=== PATIENT | female | born 1945 ===

== ENCOUNTER 2017-04-03 11:41 | Inpatient (IN) | payer MEDICARE ==
[~2017-04-03] VITALS: Ht 152.4 cm; Wt 50.8 kg
--- NOTE | 2017-04-03 12:00 | NUR ---
PATIENT ADMITS TO [facility] FROM [facility], SHE LIVES AT HOME ALONE, SHE SAYS SHE IS SCARED AND SHE BELIEVES HER CATS CAN TALK AND THEY SPEAK MACEDONIAN AND GERMAN, SHE ALSO SAYS SHE HAS A DEVICE IMPLANTED IN HER ABDOMEN. SHE SAYS SHE IS SCARED TO BE AT HOME OVER AND OVER, BUT SHE IS WORRIED ABOUT HER CATS AND SHE IS WORRIED ABOUT HER HOME. PATIENT AMBULATES INDEPENDENTLY, SHE VOIDS URINE AND BOWEL WITHOUT INCONT.
[2017-04-03] MEDS ORDERED: BAYER CHEWABLE81 MG PO (12:19)
[2017-04-03 12:40] VITALS: BP 128/60; BMI 21.9
[2017-04-03 12:55] VITALS: BMI 21.9
[2017-04-03 13:12] LABS: BASOPHILS 0.2 % (0-2); EOSINOPHILS 0.9 % (0-7); HEMATOCRIT 43.2 % (36.0-48.0); HEMOGLOBIN 14.6 g/dL (12-16); IMMATURE GRANULOCYTES 0.2 % (0-5); LYMPHOCYTES 26.5 % (15-50); MCHC 33.8 g/dL (31.0-37.0); MCV 97.5 fL (80.0-100.0); MEAN PLATELET VOLUME 9.3 fL (7.4-10.4); MONOCYTES 11.7 % (2-11); NEUTROPHILS 60.5 % (40-80); PLATELET COUNT 244 10x3/uL (130-400); RBC 4.43 10x6/uL (4.00-5.40); RDW 13.7 % (11.5-14.5); WBC 4.5 10x3/uL (4.8-10.8)
[2017-04-03 13:22] LABS: HEMOGLOBIN A1C 5.1 % (4.8-6.0)
[2017-04-03 13:38] LABS: ALBUMIN 3.3 g/dL (3.4-5.0); ALKALINE PHOSPHATASE 106 U/L (46-116); ALT (SGPT) 26 U/L (10-68); CALC OSMOLALITY 277 mosm/kg (275-300); CALCIUM 8.8 mg/dL (8.5-10.1); CHLORIDE - SERUM 102 mmol/L (98-107); CHOL - HDL RATIO 2.5 ratio (2.3-4.1); CHOLESTEROL, TOTAL 211 mg/dL (0-200); CREATININE - SERUM 0.7 mg/dL (0.6-1.3); GLUCOSE 101 mg/dL (74-106); HDL CHOLESTEROL 84 mg/dL (32-96); LDL CHOLESTEROL 110 mg/dL (0-100); LDL-HDL RATIO 1.3 ratio (1.5-3.5); PROTEIN - SERUM 7.5 g/dL (6.4-8.2); SODIUM 140 mmol/L (136-145); TRIGLYCERIDE 89 mg/dL (30-200); UREA NITROGEN 9 mg/dL (7-18); eGFR NON AFRICAN AMERICAN 87 mL/min (90-120)
[2017-04-03 13:43] LABS: AMORPHOUS SEDIMENT <1+ /lpf (NONE SEEN); APPEARANCE CLEAR (CLEAR); BACTERIA FEW /hpf (NONE SEEN); BILIRUBIN NEGATIVE (NEGATIVE); COLOR YELLOW (YELLOW); EPITHELIAL CELLS OCC /hpf (0-5); GLUCOSE NEGATIVE (NEGATIVE); KETONE NEGATIVE (NEGATIVE); MUCUS <1+ /lpf (NONE SEEN); NITRITE NEGATIVE (NEGATIVE); PROTEIN NEGATIVE (NEGATIVE); UROBILINOGEN NORMAL (NORMAL); WHITE CELLS - URINE OCC /hpf (0-5)
[2017-04-03 22:51] VITALS: BP 140/71
--- NOTE | 2017-04-04 02:21 | NUR ---
B) patient is alert and oriented , calm and cooperative, pleasant and friendly, social and attentive to peers I) no scheduled medications this shift, Monitored for safety and comfort, R) Plesant and friendly to staff, P) Continue plan of care,
[2017-04-04 06:17] LABS: VITAMIN D 25 HYDROXY 10.2 ng/mL (30.0-100.0)
[2017-04-04 07:26] LABS: FOLATE (FOLIC ACID) - SERUM 2.2 ng/mL (>3.0); RAPID PLASMA REAGIN Non Reactive (Non Reactive)
--- NOTE | 2017-04-04 07:47 | NUR ---
B) PATIENT IS CALM AND PLEASANT, SHE IS SMILING AND SHE MAKES CONVERSATION WITH STAFF. SHE IS ORIENTED X4. I) ENCOURAGE GROUPS AND ACTIVITIES. R) PATIENT IS COMPLIANT WITH UNIT MILIEU. P) CONTINUE POC.
[2017-04-04 10:00] VITALS: BP 118/52
--- NOTE | 2017-04-04 10:00 | NUR ---
PATIENT HAS MADE MENTION THAT SHE WANTS THE MEDICAL DROrlando TO DO A CT SCAN ON HER ABDOMEN SHE IS STILL HEARING VOICES FROM THE DEVICE AND SHE SAYS "I NEED TO GO TO THE OFFICE THE LADY SAYS SHE NEEDS TO SEE ME. REDIRECTED PATIENT AND SHE VERBALIZED UNDERSTANDING. PATIENT IS PLEASANT.
--- NOTE | 2017-04-04 13:10 | NUR ---
TEXT DR. ANDERSON TO LET HER BE AWARE DR. JEFFREY HAS CONSULTED HER TO SEE THIS PATIENT.
[2017-04-04 19:30] VITALS: BP 140/75
--- NOTE | 2017-04-05 02:06 | NUR ---
B) Patient alert and oriented to self, confused and restless at times, helpful with other patients, I) Administered scheduled medications, PRN Ativan 0.5 mg PO and Haldol 2mg PO given for anxiety at 21:35 R) medication compliant, resting quietly now in bed, P) Continue plan of care.
[2017-04-05 08:00] VITALS: BP 118/70
--- NOTE | 2017-04-05 11:00 | PSY ---
PATIENT NAME:RUTHY WIN MEDICAL RECORD: [id number] : 43 LOCATION:[facility] ADMISSION DATE: 04/03/17 ACCOUNT: [id number] PSYCHIATRIC EVALUATION DATE OF EVALUATION: 04/04/17 IDENTIFYING DATA: The patient is 71 years old and she is admitted to the hospital on a voluntary basis. CHIEF COMPLAINT: Hallucinations. HISTORY OF PRESENT ILLNESS: The patient was brought to the Emergency Room at [facility] yesterday. At that time, she was having psychotic symptoms. They evaluated her medically and did not find any medical or neurologic conditions that needed to be addressed. The patient was subsequently referred here because of the psychotic symptoms. The patient voluntarily came. She has 2 sets of delusions. She apparently has a whole lot of cats in her house. She said she thinks about 20. She said that the cats are speaking to her. They are speaking Tunisian and Polish, some other cats speak both languages, some other cats only speak one. Most of what they say is not of very much concern to her, but some of them say very harmful things like telling her to hurt herself. She also says that there is a device implanted inside of her abdomen and that the device is used by someone, she cannot say who, to communicate with her and that she hears people talking to her through the device. She is upset about this and wants to have surgery to remove it. PAST MEDICAL HISTORY: Remarkably clean for this 71-year-old woman. She just takes a baby aspirin. PAST PSYCHIATRIC HISTORY: Denied by the patient. She is fluent in Tunisian, although she has a fairly thick accent. She initially was born and raised in [place]. She denies that she saw a psychiatrist in that country or this one ever. She says she has no depressive symptoms. She denies substance abuse. SOCIAL HISTORY: The patient lives alone. Her was an Citizen Of [place] who is . She has no children. She has some distant relatives in [place], but most of her close relatives have . She does have a sister who lives in [place], but the sister lives in a skilled nursing. She denies drug and alcohol abuse. She is very fond of her cats and as mentioned above, she estimates the number at about 20 with some of them being inside cats and some of them just being outside cats. Both sets of cats are able to speak to her. MENTAL STATUS EXAMINATION: The patient is alert, awake and oriented to person, place and somewhat to time and situation. Her mood is euthymic. Her affect is appropriate. Thought processes are circumstantial. Memory, concentration, and abstraction abilities are moderately impaired and she denies any active intent to harm herself or others as well as overt psychotic symptoms. ASSESSMENT: AXIS I: Vascular dementia. AXIS II: None. AXIS III: None. AXIS IV: Moderate stressors. AXIS V: Global assessment of functioning is 35. PLAN: At this time, the patient is admitted to the hospital secondary to psychotic symptoms and delusions. She will be comprehensively evaluated from both a medical, psychological, and social standpoint. At this point, I am going to treat her with a low dose of an antipsychotic medication and try to obtain whatever other information I can about her. TRANSINT:[id number] Voice Confirmation ID: [id number] DOCUMENT ID: [id number] PRUDENCIO JEFFREY MD at 1100 CC: [id number] DICTATION DATE: 04/04/17 1311 RN SUPPLEMENTAL: 04/04/17 1335 ADM IN [facility] [address] [place] [address]
--- NOTE | 2017-04-06 03:07 | NUR ---
RECEIVED IN GARCIA. STANDING AT NURSES STATION. SOCIALIZING WITH STAFF. CALM AND COOPERATIVE WITH CARE AND ASSESSMENT. PARANOID. BARRICADED HER DOOR. STATED PEOPLE ARE TRYING TO KILL HER. SUSPICIOUS. ASKED IF HER PM MEDICATIONS WAS POISON. ENCOURAGE TO EXPRESS NEEDS. ENCOURAGE MEDICATION COMPLIANCE. REDIRECT AND REORIENT NEEDED. RESTING IN BED WITH EYES CLOSED AT THIS TIME. CONTINUE PLAN OF CARE.
[2017-04-06 08:00] VITALS: BP 135/70
--- NOTE | 2017-04-06 09:02 | NUR ---
PATIENT SITTING UP IN CHAIR AND EATING BREAKFAST IN THE DINING ROOM. PATIENT IS AWAKE, ALERT, AND ORIENTED TO PERSON ONLY. PATIENT IS CALM AND COOPERATIVE AT PRESENT TIME. SCHEDULED MORNING MEDICATIONS GIVEN TO PATIENT. PATIENT SWALLOWED HER MEDICATIONS WITHOUT ANY DIFFICULTIES NOTED. WILL MONITOR PATIENT FOR SAFETY AND CONTINUE PLAN OF CARE.
[2017-04-06 19:30] VITALS: BP 128/86
--- NOTE | 2017-04-07 00:22 | NUR ---
RECEIVED IN GARCIA. WALKING AROUND. SOCIALIZES WITH PEERS AND STAFF. VERY CONFUSED. PARANOID. BARRICADING HER DOOR THINKING SOMEONE IS GOIGN TO COME IN AND KILL HER. DELUSIONAL. THINKING SHE IS IN HER HOUSE AND EVERYONE IS IN HER HOUSE. TOLD ANOTHER PATIENT ON UNIT THAT HE NEEDED TO GET OUT OF HER HOUSE. ENCOURAGE TO EXPRESS NEEDS. REDIRECT AND REORIENT NEEDED. RESTING IN BED WTIH EYES OPEN AT THIS TIME. CONTINUE PLAN OF CARE.
[2017-04-07 08:00] VITALS: BP 116/60
--- NOTE | 2017-04-07 13:37 | PN ---
PATIENT:RUTHY WIN MEDICAL RECORD: [id number] LOCATION:[facility] ADMISSION DATE: 04/03/17 PROGRESS NOTE DATE OF SERVICE: 04/05/2017 SUBJECTIVE: The patient's case was discussed with staff. She has no new complaint. OBJECTIVE: The patient denies intent to harm herself or others. She generally tolerates her medicines well. ASSESSMENT: No change in diagnoses. PLAN: Supportive and educational interventions were made. senior care prognosis is guarded. She has had no further psychotic symptoms today. Dr. Corinna Garsia is testing her today. TRANSINT:[id number] Voice Confirmation ID: [id number] DOCUMENT ID: [id number] PRUDENCIO JEFFREY MD at 1337 CC: [id number] DICTATION DATE: 04/05/17 1130 PLANT TECHNICIAN: 04/05/17 1158 ADM IN [facility] [address] [place] [address]
--- NOTE | 2017-04-07 14:09 | NUR ---
PT CONTINUES TO MAKE RANDOM DELUSIONAL STATEMENTS IN REGARDS TO HER HALLUCINATIONS. SHE IS VERY GUARDED ABOUT TALKING ABOUT THE HALLUCINATIONS BECAUSE "PEOPLE WILL THINK I AM CRAZY". ENCOURAGED PT TO EXPRESS FEELINGS AND TALK ABOUT THER HALLUCINATIONS SO WE COULD HELP HER. MEDICATIONS GIVEN ORDERED. FALL PRECAUTIONS MAINTAINED. WILL CONTINUE TO MONITOR AND CONTINUE WITH PLAN OF CARE.
[2017-04-07 21:18] VITALS: BP 132/62
--- NOTE | 2017-04-08 00:22 | NUR ---
RECEIVED IN PATIENT ROOM. WALKING AROUND IN ROOM. VERY CONFUSED. CALM AND COOPERATIVE [facility] CARE AND ASSESSMENT. NO SIGNS OF HALLUCINATIONS. VERY CARING AND VERY HELPFUL WITH PEERS. ENCOURAGE TO EXPRESS NEEDS. RESTING IN BED [facility] EYES OPEN AT THIS TIME. CONTINUE PLAN OF CARE.
--- NOTE | 2017-04-08 14:39 | PN ---
PATIENT:RUTHY WIN MEDICAL RECORD: [id number] LOCATION:[facility] ADMISSION DATE: 04/03/17 PROGRESS NOTE DATE OF SERVICE: 04/07/2017 SUBJECTIVE: The patient's case was discussed with staff. She has no new complaint. OBJECTIVE: The patient is in good behavioral control. She was tested by Dr. Corinna Dobbs and found to score in the severe cognitive range. I am a little surprised by the findings because she is oriented. ASSESSMENT: 1. 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 2. Major depression, moderate severity. PLAN: The patient will be treated with current medicines with the exception of Namenda. I am going to prescribe Namenda at a dose of 2.5 mg twice daily to treat her underlying cognitive impairment. It is clear from the testing and the several days of observation in this environment that she is not going to be able to go back to living independently, that is not a realistic option. I did not discuss that with her today. I did discuss the test findings, which she rejects. TRANSINT:[id number] Voice Confirmation ID: [id number] DOCUMENT ID: [id number] PRUDENCIO JEFFREY MD at 1439 CC: [id number] DICTATION DATE: 04/07/17 1405 OUTSIDE PLANT ENGINEER: 04/07/17 1423 [place] [address]
--- NOTE | 2017-04-08 15:45 | NUR ---
Received this am alert and oriented to name and place, states she is here because she "i'm having a hard time", Compliant with medications. No delusions noted at this time, has been very social and active with peers finding things to do. Distraction and interactions with others seems to minimize paranoia. Safety maintained, Continue plan of care.
[2017-04-08 20:39] VITALS: BP 144/71
--- NOTE | 2017-04-09 03:00 | NUR ---
RECEIVED IN HALLWAY. CONFUSED BUT IN GOOD SPIRITS. HELPFUL WITH PEERS. CALM AND COOPERATIVE WITH CARE AND ASSESSMENT. PARANOIA CONTINUES. BARRICADES HER BEDROOM DOOR. REDIRECT AND REOIENTED. REINFORCE HER SAFETY. ENCOURAGE TO EXPRESS NEEDS. RESTING EYES CLOSED AT THIS TIME. CONTINUE PLAN OF CARE
[2017-04-09 11:08] VITALS: BP 111/56
--- NOTE | 2017-04-09 12:09 | NUR ---
B) PATIENT IS AWAKE AND ALERT, SHE IS PLEASANT. SHE DENIES ANY HALLUCINATIONS, NOT HEARING MEN IN HER ABDOMEN TODAY OR LAST NIGHT. SHE SAYS "MY BIGGEST PROBLEM IS I'M LONELY." THE ACTIVITY THERAPIST HAS SPENT A LONG TIME DANCING WITH HER AND TALKING WITH HER AND HAVING GROUPS WHERE SHE INTERACTS WITH OTHERS AND SHE DID VERY WELL. I) PROVIDE PRESCRIBED MEDS. R) PATIENT IS COMPLIANT WITH MEDS AND UNIT MILIEU. P) CONTINUE POC.
--- NOTE | 2017-04-09 16:41 | PN ---
PATIENT:RUTHY WIN MEDICAL RECORD: [id number] LOCATION:[facility] ADMISSION DATE: 04/03/17 PROGRESS NOTE DATE OF SERVICE: 04/08/2017 SUBJECTIVE: The patient's case was discussed with staff. She has no new complaint. OBJECTIVE: The patient denies intent to harm herself or others. She generally tolerates her medicines well. ASSESSMENT: No change in diagnoses. PLAN: Current medicines have been reviewed and will be maintained. Her long-term prognosis is guarded. Brief supportive and educational interventions were made. TRANSINT:[id number] Voice Confirmation ID: [id number] DOCUMENT ID: [id number] PRUDENCIO JEFFREY MD at 1641 CC: [id number] DICTATION DATE: 04/08/17 1501 FACING BASTER: 04/08/17 1550 ADM IN [facility] [address] [place] [address]
--- NOTE | 2017-04-09 18:29 | NUR ---
Alert, walking about unit, denies pain/needs.
--- NOTE | 2017-04-10 01:44 | NUR ---
RECEIVED IN BEDROOM. PATIENT IS ORIENTED TO SELF ONLY. VERY HELPFUL AND CARING FOR HER PEERS. BUT HAS PARANOIA. BARRICADING HER DOOR AT NIGHT. CALM AND COOPERATIVE WITH CARE AND ASSESSMENT. NO DELUSIONAL STATEMENTS MADE THIS EVENING. REDIRECT AND REORIENT NEEDED. RESTING IN BED WITH EYES CLOSED AT THIS TIME. CONTINUE PLAN OF CARE.
[2017-04-10 08:30] VITALS: BP 131/56
--- NOTE | 2017-04-10 15:56 | NUR ---
B) PATIENT STILL THINKS SHE HAS A DEVICE IN HER STOMACH, SHE DENIES ANY VOICES, BUT SHE SAYS SHE IS STILL SCARED. SHE TRIES TO BE HELPFUL WITH OTHER PATIENTS AND SHE IS PLEASANT, SHE AMBULATES INDEPENDENTLY. I) PROVIDE PRESCRIBED MEDS. R) PATIENT IS COMPLIANT WITH MEDS AND UNIT MILIEU. P) CONTINUE POC.
[2017-04-10 19:30] VITALS: BP 110/64
--- NOTE | 2017-04-11 03:23 | NUR ---
B) patient is lert and oriented to self and being in a hospital, calm and healpful with other patients, I) Administered scheduled medications, monitored for safety, R) Medication compliant, no mention of devics or other behaviors, P) Continue plan of care.
[2017-04-11 08:30] VITALS: BP 119/56
--- NOTE | 2017-04-11 10:00 | NUR ---
B) PATIENT IS CALM AND COMPLIANT, VERY PLEASANT, LISTENS TO REDIRECTION. SHE SAYS SHE IS NOT HEARING ANY VOICES, SHE DOES SAY SHE IS STILL SCARED. PATIENT AMBULATES INDEPENDENTLY. I) PROVIDE PRESCRIBED MEDS. R) PATIENT IS COMPLIANT WITH MEDS AND UNIT MILIEU. P) CONTINUE POC.
[2017-04-11 19:30] VITALS: BP 133/88
--- NOTE | 2017-04-12 03:26 | NUR ---
B) Patient is alert and oriented X 3, wanders at times, calm and pleasant, I) Administered scheduled medications, monitored for safety R) Medication compliant, friendly and cooperative, P) Continue plan of care.
--- NOTE | 2017-04-12 05:45 | PN ---
PATIENT:RUTHY WIN MEDICAL RECORD: [id number] LOCATION:[facility] ADMISSION DATE: 04/03/17 PROGRESS NOTE DATE OF SERVICE: 04/11/2017 SUBJECTIVE: No new complaint. OBJECTIVE: Staff report the patient has been tolerating medications well. She is cooperative. She remains very confused. On exam, mood is euthymic. Affect is very reserved. Speech is quite terse. Content of thought positive for paranoid ideation and somewhat auditory hallucinations. Sensorium is unchanged. ASSESSMENT: No change in diagnosis. PLAN: 1. We will maintain all current medications. 2. Continue supportive therapy. TRANSINT:[id number] Voice Confirmation ID: [id number] DOCUMENT ID: [id number] ARCELIA REYNOSO III, MD at 0545 CC: [id number] DICTATION DATE: 04/11/17 1155 CASTING MACHINE SERVICE OPERATOR: 04/11/17 1204 ADM IN [facility] [address] [place] [address]
[2017-04-12 08:00] VITALS: BP 134/63
--- NOTE | 2017-04-12 10:00 | NUR ---
B) PATIENT'S SISTER LOUISE THAT LIVES IN [place] CALLED THE POLICE TO DO A WELLNESS CHECK UP. CAROLINE DID WANT HER TO KNOW WHERE SHE IS, DID GIVE THEM PERMISSION TO TALK AT THIS TIME THEY ARE BOTH CONCERNED ABOUT ONE ANOTHER, THE SISTER IS IN POOR HEALTH AND NOT ABLE TO TRAVEL HERE. I) PROVIDED DIRECT PHONE NUMBER AND PHONE CALL TIMES AND CODE WORD. PROVIDE PRESCRIBED MEDS TO PATIENT. R) PATIENT IS COMPLIANT WITH MEDS AND UNIT MILIEU. SHE TRIES TO BE HELPFUL AND SHE IS KIND, BUT SHE NEEDS SOME REDIRECTION NOT TO HELP WITH ACTUAL PATIENT CARE. PATIENT DENIES VOICES, SAYS SHE IS SCARED, SHE WILL NOT EAT VERY MUCH BECAUSE SHE SAYS THE DEVICE IS TAKING UP TOO MUCH ROOM IN HER STOMACH. P) CONTINUE POC.
[2017-04-12 19:30] VITALS: BP 136/82
--- NOTE | 2017-04-13 04:31 | NUR ---
B) patient is alert and oriented, calm and social with peers, friendly and helpful I) Administered scheduled medications, MOnitored for safety R) Medication compliant, pleasant and no behaviors or delusions noted P) Continue plan of care.
[2017-04-13 08:00] VITALS: BP 107/52
--- NOTE | 2017-04-13 08:45 | NUR ---
B) ALERT AND ORIENTED TO NAME AND PLACE. CALM AND COOPERATIVE WITH ASSESSMENT. I) ADMINISTERED PRESCRIBED MEDICATIONS AND MONITOR FOR SAFETY. R) COMPLIANT WITH TAKING MEDICATIONS. P) CONTINUE PLAN OF CARE.
[2017-04-13 19:30] VITALS: BP 126/76
--- NOTE | 2017-04-13 21:37 | NUR ---
RECEIVED IN DINING AREA. WALKING ABOUT SOCIALIZING WITH HER PEERS. IN GOOD SPIRITS. CALM AND COOPERATIVE WITH CARE AND ASSESSMENTS. NO SIGNS OF PARANOIA AT THIS TIME. NO DELUSIONAL STATEMENTS. REDIRECT AND REORIENT NEEDED. CONTINUES TO SOCIALIZE WITH HER PEERS. CONTINUE PLAN OF CARE
[2017-04-14 09:41] VITALS: BP 126/80
--- NOTE | 2017-04-14 10:12 | PN ---
PATIENT:RUTHY WIN MEDICAL RECORD: [id number] LOCATION:[facility] ADMISSION DATE: 04/03/17 PROGRESS NOTE DATE OF SERVICE: 04/13/2017 SUBJECTIVE: No new complaint. OBJECTIVE: The patient continues to be cooperative with staff. She is tolerating medications well. On exam, mood is for the most part euthymic. Affect is overall constricted. Speech tends to be fairly terse. Content of thought is negative for overt psychosis. Sensorium shows no change. ASSESSMENT: No change in diagnosis. PLAN: 1. Continue present medications. 2. Continue supportive therapy. TRANSINT:[id number] Voice Confirmation ID: [id number] DOCUMENT ID: [id number] ARCELIA REYNOSO III, MD at 1012 CC: [id number] DICTATION DATE: 04/13/17 1638 ORDER DEPARTMENT SUPERVISOR: 04/13/17 2214 ADM IN [place] [id number] [place] [address]
--- NOTE | 2017-04-14 14:04 | PN ---
PATIENT:RUTHY WIN MEDICAL RECORD: [id number] LOCATION:[facility] ADMISSION DATE: 04/03/17 PROGRESS NOTE DATE OF SERVICE: 04/10/2017 SUBJECTIVE: The patient's case was discussed with staff. She has no new complaint. OBJECTIVE: The patient denies intent to harm herself or others. She generally tolerates her medicines well. ASSESSMENT: No change in diagnoses. PLAN: Current medicines have been reviewed and will be maintained. Her long-term prognosis is guarded. I am going to increase her dose of Zoloft to 100 mg daily. TRANSINT:[id number] Voice Confirmation ID: [id number] DOCUMENT ID: [id number] PRUDENCIO JEFFREY MD at 1404 CC: [id number] DICTATION DATE: 04/10/17 1508 RATE QUOTING OPERATOR: 04/10/17 1756 ADM IN [place] [id number] [place] [id number]
--- NOTE | 2017-04-14 14:04 | PN ---
PATIENT:RUTHY WIN MEDICAL RECORD: [id number] LOCATION:[facility] ADMISSION DATE: 04/03/17 PROGRESS NOTE DATE OF SERVICE: 04/09/2017 SUBJECTIVE: The patient's case was discussed with staff. She has no new complaint. OBJECTIVE: The patient continues to be delusional about the cats talking to her and the cats are not here today, so the device in her abdomen is talking to her. Quick exam reveals normal bowel sounds and her stomach is supple and not tender. She is having normal bowel movements. At least that is what she reports and there is no reason to think that is mistaken. She is very much convinced that this device in her is talking to her and that the things that it is saying is that she is being accused of murder. She is upset by this. ASSESSMENT: No change in diagnoses. PLAN: I have reviewed the patient's medications which have not had an opportunity to become effective. I am going to maintain her on current medicines. I have done some supportive and educational interventions. It is clear she is not going to be able to live independently. It also appears to be clear that there are no close friends or family members who can care for her. She is a [place] immigrant and her closest relative is a sister who lives in [place] in a care home. TRANSINT:[id number] Voice Confirmation ID: [id number] DOCUMENT ID: [id number] PRUDENCIO JEFFREY MD at 1404 CC: [id number] DICTATION DATE: 04/09/17 171 SENIOR FORMULATION SCIENTIST: 04/09/17 1841 ADM IN [place] [id number] [place] [address]
--- NOTE | 2017-04-14 22:19 | NUR ---
RECEIVED IN BEDROOM. RESTING IN BED WITH EYES OPEN. CALM AND COOPERATIVE WITH CARE AND ASSESSMENTS. NO SIGNS OF PARANOIA. ENCOURAGE TO EXPRESS NEEDS. RESTING IN BED WITH EYES CLOSED AT THIS TIME. CONTINUE PLAN OF CARE
[2017-04-15 06:57] VITALS: BP 119/56
[2017-04-15 08:30] VITALS: BP 119/56
--- NOTE | 2017-04-15 11:00 | NUR ---
AWAKE AND ALERT. CALM AND COOPERATIVE WITH CARE ASSESSMENT, PARTICIPATING WITH GROUPS, STILL SOME CONFUSION. WILL CONT. POC.
[2017-04-15 12:26] VITALS: Ht 152.4 cm; Wt 50.8 kg
--- NOTE | 2017-04-15 14:20 | PN ---
PATIENT:RUTHY WIN MEDICAL RECORD: [id number] LOCATION:[facility] ADMISSION DATE: 04/03/17 PROGRESS NOTE DATE OF SERVICE: 04/14/2017 SUBJECTIVE: The patient's case was discussed with staff. She has no new complaint. OBJECTIVE: The patient is only partially oriented. She says the hallucinations are gone and as is that device in her abdomen that was talking to her. ASSESSMENT: No change in diagnoses. PLAN: Current medicines have been reviewed and will be maintained. Long-term prognosis is guarded. TRANSINT:[id number] Voice Confirmation ID: [id number] DOCUMENT ID: [id number] PRUDENCIO JEFFREY MD at 1420 CC: [id number] DICTATION DATE: 04/14/17 1450 MEDICAL VAN DRIVER: 04/14/17 1555 ADM IN [facility] [address] [place] [address]
[2017-04-15 20:25] VITALS: BP 136/72
--- NOTE | 2017-04-15 22:47 | NUR ---
RECEIVED IN BEDROOM. RESTING IN BED WITH EYES OPEN. CALM AND COOPERATIVE WITH CARE AND ASSESSMENTS. NO SIGNS OF PARANOIA. SOCIAL WITH STAFF AND PEERS. ENCOURAGE TO EXPRESS NEEDS. RESTING IN BED EYES CLOSED AT THIS TIME. CONTINUE PLAN OF CARE
[2017-04-16 10:36] VITALS: BP 119/54
--- NOTE | 2017-04-16 13:25 | NUR ---
B) PATIENT IS CALM AND PLEASANT, SHE DOES HAVE SOME CONFUSION SHE DOESN'T KNOW THE DATE OR TIME, BUT SHE KNOWS WHERE TO LOOK ON THE BOARD AND TO LOOK AT THE CLOCK. SHE DENIES HEARING ANY VOICES, SHE SAYS AT TIMES SHE GETS SCARED AT NIGHT, BUT BELIEVES THE MEDICINE IS HELPING HER DEVICE DISOLVE FROM HER ABDOMEN. I) PROVIDE PRESCRIBED MEDS. R) PATIENT IS COMPLIANT WITH MEDS. PABLITO Willis HERE TO ASSESS. P) CONTINUE POC.
--- NOTE | 2017-04-16 15:06 | PN ---
PATIENT:RUTHY WIN MEDICAL RECORD: [id number] LOCATION:[facility] ADMISSION DATE: 04/03/17 PROGRESS NOTE DATE OF SERVICE: 04/15/2017 SUBJECTIVE: The patient's case was discussed with staff. She has no new complaint. OBJECTIVE: The patient denies intent to harm herself or others. She generally tolerates her medicines well. She denies paranoid or psychotic symptoms. ASSESSMENT: No change in diagnoses. PLAN: The patient simply cannot live independently and there are no options regarding family, friends, or relatives. Furthermore, she cannot afford kind of caregivers that would require to care for her in her home, so it appears the [facility] at the least restrictive environment. Adult protective services are involved with the case because the patient insists she can live independently, which she cannot. TRANSINT:[id number] Voice Confirmation ID: [id number] DOCUMENT ID: [id number] PRUDENCIO JEFFREY MD at 1506 CC: [id number] DICTATION DATE: 04/15/17 1449 SOCIAL MEDIA CAMPAIGN MANAGER: 04/15/17 1508 ADM IN [facility] [address] [place] [address]
[2017-04-16 19:52] VITALS: BP 134/58
--- NOTE | 2017-04-17 00:23 | NUR ---
B) Patient is alert and oriented, calm and friendly, cooperative with staff, social with peers, I) Administered scheduled medications, monitored for safety R) medication compliant, no behaviors noted, P) Continue plan of care.
[2017-04-17 07:30] VITALS: BP 93/63
--- NOTE | 2017-04-17 13:50 | PN ---
PATIENT:RUTHY WIN MEDICAL RECORD: [id number] LOCATION:[facility] ADMISSION DATE: 04/03/17 PROGRESS NOTE DATE OF SERVICE: 04/16/2017 SUBJECTIVE: The patient's case was discussed with staff. She has no new complaint. OBJECTIVE: The patient is in good behavioral control. She no longer has the psychotic symptoms. She is severely impaired cognitively and cannot live alone. ASSESSMENT: No change in diagnoses. PLAN: The patient will be transitioned to the least restrictive environment that can meet her needs as soon as placement is arranged. This is complicated by the fact that she has no family or close friends who can assist us and she does not want to go to the care home, but wants to go home and live independently with her cats. TRANSINT:[id number] Voice Confirmation ID: [id number] DOCUMENT ID: [id number] PRUDENCIO JEFFREY MD at 1350 CC: [id number] DICTATION DATE: 04/16/17 1622 MANAGER OF PLANNING: 04/16/17 1653 ADM IN [facility] [address] [place] [address]
--- NOTE | 2017-04-17 14:18 | NUR ---
Nutrition Follow Up: Pt is eating 69% meal avg on a regular diet. +BM 04/16/17. Meds and labs noted. Rec continue current diet. RD following.
--- NOTE | 2017-04-17 15:26 | NUR ---
B) PATIENT IS AWAKE AND ALERT AND SHE IS ORIENTED TO PERSON AND PLACE, SHE IS FORGETFUL AT TIMES. SHE IS INTERACTING WELL WITH STAFF AND PEERS. SHE IS AMBULATORY. I) PROVIDE PRESCRIBED MEDS. R) PATIENT IS COMPLIANT WITH MEDS AND UNIT MILIEU. P) CONTINUE POC.
[2017-04-17 20:31] VITALS: BP 114/46
--- NOTE | 2017-04-18 01:36 | NUR ---
B) Patient is alert and oriented, calm and cooperative with care and assessment, social with peers, helpful to others, I) Administered scheduled medications, monitored for safety, R) Medication compliant, pleasant and friendly P) Continue plan of care.
[2017-04-18 08:00] VITALS: BP 94/57
--- NOTE | 2017-04-18 13:13 | NUR ---
CHRISTIANNE SPOKE WITH ILENE FROM APS. HE STATED PT CAN GO HOME WITH SERVICES AND THEY WILL DO A FOLLOW UP CHECK ON HER. SHE NEEDS TO BE IN THE LEAST RESTRICTIVE ENVIRONMENT AND IF THAT DOES NOT WORK THEY WILL GET HER TO SIGN HERSELF INTO PLACEMENT. CHRISTIANNE STATED SHE WILL SET UP PT WITH MEALS ON WHEELS.
--- NOTE | 2017-04-18 14:59 | NUR ---
B) PATIENT IS AWAKE AND ALERT, SHE DID HAVE AN ASSESSMENT WITH APS TODAY. PATIENT AMBULATES AND SHE DENIES ANY HALLUCINATIONS TODAY, HAS NOT MADE ANY STATEMENTS ABOUT BEING FEARFUL TODAY. I) PROVIDE PRESCRIBED MEDS. R) PATIENTI S COMPLIANT WITH MEDS. P) CONTINUE POC.
[2017-04-18 19:30] VITALS: BP 93/55
--- NOTE | 2017-04-18 21:52 | PN ---
PATIENT:RUTHY WIN MEDICAL RECORD: [id number] LOCATION:[facility] ADMISSION DATE: 04/03/17 PROGRESS NOTE DATE OF SERVICE: 04/18/2017 SUBJECTIVE: No new complaint. OBJECTIVE: The patient is tolerating medications well. She has been cooperative with staff. Staff is working on placement options. On exam, mood is euthymic. Affect is somewhat constricted. Speech is rather terse. Content of thought and sensorium are both unchanged. ASSESSMENT: No change in diagnosis. PLAN: 1. Continue current medications. 2. Continue supportive therapy. TRANSINT:[id number] Voice Confirmation ID: [id number] DOCUMENT ID: [id number] ARCELIA REYNOSO III, MD at 2152 CC: [id number] DICTATION DATE: 04/18/17 1307 DENTAL SURGEON: 04/18/17 1322 ADM IN [facility] [address] [id number]
--- NOTE | 2017-04-19 00:48 | NUR ---
RECEIVED IN BEDROOM. WALKING ABOUT HER ROOM. IN GOOD SPIRITS. SOCIAL WITH STAFF AND PEERS. CALM AND COOPERATIVE WITH CARE AND ASSESSMENTS. NO SIGNS OF PARANOIA. REDIRECT AND REORIENT NEEDED. ENCOURAGE TO EXPRESS NEEDS. RESTING IN BED WITH EYES CLOSED AT THIS TIME. CONTINUE PLAN OF CARE
--- NOTE | 2017-04-19 13:25 | NUR ---
ORIENTED TO SELF AND HOSPITAL.WALKS FREQUENTLY WITH FAIRLY STEADY GAIT.COMPLIANT WITH STAFF AND MEDS.OFTEN OBSERVED HELPING OTHERS.WILL CONTINUE WITH PLAN OF CARE.MONITOR FOR CHANGES AND SAFETY.
[2017-04-19 16:04] VITALS: BP 101/53
[2017-04-19 19:30] VITALS: BP 105/64
--- NOTE | 2017-04-19 22:44 | NUR ---
RECEIVED IN HALLWAY. PLEASANTLY CONFUSED. CALM AND COOPERATIVE WITH CARE AND ASSESSMENTS. NO SIGNS OF PARANOIA THIS EVENING. REDIRECT AND REORIENT NEEDED. RESTING IN BED WITH EYES OPEN. CONTINUE PLAN OF CARE
--- NOTE | 2017-04-20 05:02 | PN ---
PATIENT:RUTHY WIN MEDICAL RECORD: [id number] LOCATION:[facility] ADMISSION DATE: 04/03/17 PROGRESS NOTE DATE OF SERVICE: 04/19/2017 SUBJECTIVE: No new complaint. OBJECTIVE: The patient continues to be cooperative. She interacts well with other female patients. She is tolerating medications without difficulty. On exam, mood is for the most part euthymic. Affect remains somewhat constricted. Speech is somewhat terse. Content of thought shows nonspecific paranoid ideation. Sensorium shows no change. ASSESSMENT: No change in diagnosis. PLAN: 1. Continue all current medications. 2. Continue supportive therapy. TRANSINT:[id number] Voice Confirmation ID: [id number] DOCUMENT ID: [id number] ARCELIA REYNOSO III, MD at 0502 CC: [id number] DICTATION DATE: 04/19/17 0955 FLIGHT SURVEYOR: 04/19/17 1155 ADM IN [address] [place] [address]
--- NOTE | 2017-04-20 10:44 | NUR ---
ORIENTED X 3 BUT CONTINUES TO BELIEVE SHE HAD IMPLANTED DEVICE IN HER ABD THAT ENABLED HER TO TALK WITH THE 22 CATS SHE HAD AT HER HOME.SHE NOW BELIEVES DEVICE HAS DISSOLVED.IS AMBULATORY.COMPLANT WITH STAFF AND MEDS.WILL CONTINUE WITH PLAN OF CARE,MONITOR FOR CHANGES AND SAFETY.
[2017-04-20 19:09] VITALS: BP 105/57
[2017-04-20 20:30] VITALS: BP 118/52
--- NOTE | 2017-04-20 22:00 | NUR ---
RECEIVED IN HALLWAY. WALKING ABOUT. SOCIALIZING WITH PEERS AT TIMES. IN GOOD SPIRITS. CALM AND COOPERATIVE WITH CARE AND ASSESSMENTS. NO SIGNS OF PARANOIA THIS EVENING. ENCOURAGE TO EXPRESS NEEDS. RESTING IN BED WITH EYES CLOSED AT THIS TIME. CONTINUE PLAN OF CARE
[2017-04-21 12:18] VITALS: BP 102/58
--- NOTE | 2017-04-21 14:00 | NUR ---
ORIENTED TO SELF AND HOSPITAL. CALM AND COOPERATIVE WITH PEERS AND STAFF. AMBULATES INDEPENDENTLY AND IS HELPFUL TO OTHERS. CONTINU POC AND MONITOR FOR SAFETY AND CHANGES.
[2017-04-21 20:35] VITALS: BP 117/54
--- NOTE | 2017-04-21 21:02 | NUR ---
RECEIVED IN BEDROOM. WALKING ABOUT HER ROOM. CALM AND COOPERATIVE WITH CARE AND ASSESSMENTS. NO SIGNS OF PARANOIA. ENCOURAGE TO EXPRESS NEEDS. RESTING IN BED WITH EYES OPEN AT THIS TIME. CONITNUE PLAN OF CARE
--- NOTE | 2017-04-22 10:17 | PN ---
PATIENT:RUTHY WIN MEDICAL RECORD: [id number] LOCATION:[facility] ADMISSION DATE: 04/03/17 PROGRESS NOTE DATE OF SERVICE: 04/21/2017 SUBJECTIVE: No new complaint. OBJECTIVE: The patient continues to tolerate medications well, but remains confused. She does require redirection from time to time. On exam, mood is euthymic. Affect is bland. Speech is rather terse. Content of thought is unchanged. Sensorium unchanged. ASSESSMENT: No change in diagnosis. PLAN: 1. Maintain current medication. 2. Continue supportive therapy. TRANSINT:[id number] Voice Confirmation ID: [id number] DOCUMENT ID: [id number] ARCELIA REYNOSO III, MD at 1017 CC: [id number] DICTATION DATE: 04/21/17 1353 SOLE FILLER: 04/21/17 1450 ADM IN [address] [place] [address]
[2017-04-22 10:32] VITALS: BP 83/53
[2017-04-22 20:22] VITALS: BP 113/50
--- NOTE | 2017-04-22 21:22 | NUR ---
RECEIVED IN BEDROOM. WALKING ABOUT HER ROOM GETTING READY FOR BED. CALM AND COOPERATIVE WITH CARE AND ASSESSMENTS. NO SIGNS OF PARANOIA. ENCOURAGE TO EXPRESS NEEDS. REMAIN IN BEDROOM RESTING QUIETLY. CONTINUE PLAN OF CARE
[2017-04-23 08:00] VITALS: BP 108/70
--- NOTE | 2017-04-23 09:00 | NUR ---
ALERT, AMBULATORY, CONFUSED, TALKATIVE, PLEASANT, DENIES PAIN, HELPFUL WITH OTHER PATIENTS, MED COMPLIANT, EDWIN MEDS WELL. CONTINUE PLAN OF CARE INCLUDING MEDICATIONS AND GROUP THERAPY.
--- NOTE | 2017-04-23 09:31 | PN ---
PATIENT:RUTHY WIN MEDICAL RECORD: [id number] LOCATION:[facility] ADMISSION DATE: 04/03/17 PROGRESS NOTE DATE OF SERVICE: 04/22/2017 SUBJECTIVE: No new complaint. OBJECTIVE: The patient has continued to be compliant with staff. No new problems noted. On exam, mood is for the most part euthymic. Affect is rather constricted. Speech is terse. Content of thought is negative for suicidality. Sensorium is unchanged. ASSESSMENT: No change in diagnosis. PLAN: 1. Awaiting communication from adult protective services regarding discharge plans. 2. Continue all current medications. 3. Continue supportive therapy. TRANSINT:[id number] Voice Confirmation ID: [id number] DOCUMENT ID: [id number] ARCELIA REYNOSO III, MD at 0931 CC: [id number] DICTATION DATE: 04/22/17 1208 SUPPLY CHAIN CONSULTANT: 04/22/17 1229 ADM IN [id number] [place] [address]
[2017-04-23 20:05] VITALS: BP 116/73
--- NOTE | 2017-04-23 21:35 | NUR ---
LAYING BED WITH EYES CLOSED. RESPONDS TO VOICE. CALM AND COOPERATIVE WITH CARE AND ASSESSMENTS. NO SIGNS OF PARANOIA. NO DELUSIONAL STATEMENTS MADE. ENCOURAGE TO EXPRESS NEEDS. RESTING IN BED WITH EYES CLOSED AT THIS TIME. CONTINUE PLAN OF CARE
--- NOTE | 2017-04-24 08:07 | PN ---
PATIENT:RUTHY WIN MEDICAL RECORD: [id number] LOCATION:[facility] ADMISSION DATE: 04/03/17 PROGRESS NOTE DATE OF SERVICE: 04/23/2017 SUBJECTIVE: No new complaint. OBJECTIVE: We are awaiting communication from adult protective services regarding discharge plans. On exam, mood is euthymic. Affect is bland. Speech is terse. Content of thought is unchanged. Sensorium unchanged. ASSESSMENT: No change in diagnosis. PLAN: 1. Maintain current medications. 2. Continue supportive therapy. TRANSINT:[id number] Voice Confirmation ID: [id number] DOCUMENT ID: [id number] ARCELIA REYNOSO III, MD at 0807 CC: [id number] DICTATION DATE: 04/23/17 1154 HEALTH PROGRAM DIRECTOR: 04/23/17 1223 ADM IN [facility] [address] [place] [address]
--- NOTE | 2017-04-24 09:52 | NUR ---
B) PATIENT IS AWAKE AND ALERT, SHE IS POSITIVE AND POLITE, SHE HAS NOT MADE ANY STATEMENTS ABOUT HEARING VOICES AND NO REFERENCE TO THE DEVICE IN HER ABDOMEN, DENIES BEING FEARFUL. I) PROVIDE PRESCRIBED MEDS. R) PATIENT IS COMPLIANT WITH MEDS. P) CONTINUE POC.
[2017-04-24 11:59] VITALS: BP 110/50
--- NOTE | 2017-04-24 12:18 | NUR ---
NUTRITION F/U CHART REVIEWED. PT TOLERATING REG DIET WITH 75 TO 100% INTAKE RECENT MEALS. NO RECENT BM RECORDED. WILL CONTINUE TO PROVIDE DIET, MONITOR PO INTAKE. RD FOLLOWING
--- NOTE | 2017-04-24 19:58 | NUR ---
RECEIVED IN DAYROOM. SITTING IN CHAIR. SOCIALIZING WITH PEERS AND STAFF. CALM AND COOPERATIVE WITH CARE AND ASSESSMENT. NO DELUSIONAL STATEMENTS MADE. ENCOURAGE TO EXPESS NEEDS. PATIENT SITTING WITH PEERS SOCIALIZING AT THIS TIME. CONTINUE PLAN OF CARE.
[2017-04-24 22:00] VITALS: BP 124/59
--- NOTE | 2017-04-25 07:59 | NUR ---
RECEIVED IN BEDROOM. WALKING ABOUT HER ROOM. GETTING READY FOR THE DAY. IN GOOD SPIRITS. CALM AND COOPERATIVE WITH CARE AND ASSESSMENTS. NO SIGNS OF PARANOIA. SOCIALIZING WITH PEERS AT THIS TIME. CONTINUE PLAN OF CARE
--- NOTE | 2017-04-25 10:07 | PN ---
PATIENT:RUTHY WIN MEDICAL RECORD: [id number] LOCATION:[facility] ADMISSION DATE: 04/03/17 PROGRESS NOTE DATE OF SERVICE: 04/24/2017 SUBJECTIVE: No new complaint. OBJECTIVE: Discharge remains held up due to this unit not receiving communication from adult protective services. It has now been over 3 days and despite repeated phone calls no communication has been received. The patient herself is stable at the moment. PHYSICAL EXAMINATION: On exam, mood is euthymic. Affect is rather constricted. Speech is somewhat terse. Content of thought is unchanged. Sensorium is unchanged. ASSESSMENT: No change in diagnosis. PLAN: 1. Continue current medications. 2. Continue supportive therapy. TRANSINT:[id number] Voice Confirmation ID: [id number] DOCUMENT ID: [id number] ARCELIA REYNOSO III, MD at 1007 CC: [id number] DICTATION DATE: 04/24/17 1150 INTERIOR DESIGN PROGRAM CHAIR: 04/24/17 1217 ADM IN [id number] [place] [address]
[2017-04-25 10:47] VITALS: BP 104/53
[2017-04-25 19:30] VITALS: BP 125/61
--- NOTE | 2017-04-26 05:20 | NUR ---
B) Patient is alert and oriented to self, calm and helpful with peers, cooperative with staff, I) Administered scheduled medications, monitored for behaviors, R) Meedication compliant, pleasant and friedly P) Continue plan of care.
--- NOTE | 2017-04-26 07:45 | NUR ---
B) PATIENT IS AWAKE AND ALERT AND ORIENTED X3, BUT SHE DID SAYS SHE IS BEGINNING TO HEAR MUSIC ALL THE TIME, SHE SAYS "I AM TRYING TO FIGURE OUT WHERE IT IS COMING FROM, GOD ONLY KNOWS." PATIENT AMBULATES INDEPENDENTLY, SHE IS HELPFUL AND CURTEOUS TO STAFF AND PEERS. I) PROVIDE PRESCRIBED MEDS. R) PATIENT IS COMPLIANT WITH MEDS. P) CONTINUE POC.
[2017-04-26 08:00] VITALS: BP 96/52
[2017-04-26 19:28] VITALS: BP 112/70
--- NOTE | 2017-04-27 03:36 | NUR ---
B) Patient is alert and oriented, calm and friendly to staff and peers, helpful to other patients, I) Administered scheduled medications, monitored for safety R) Medication compliant, pleasant and cooperative P) Continue plan of care.
[2017-04-27 07:00] VITALS: BP 106/46
--- NOTE | 2017-04-27 16:32 | NUR ---
IS ORIENTED X3 BUT STILL BELIEVES HER CATS TALKED TO HER AND THAT SHE HAD A DEVICE IMPLANTED IN HER BELLY THAT ALLOWED CATS TO TALK TO HER.SHE BELIEVES THE DEVICE WAS DISSOLVED BY MEDICINE GIVEN TO HER.IS AMBULATORY PER SELF.COMPLIANT WITH MEDS.WILL CONTINUE WITH PLAN OF CARE,MONITOR FOR CHANGES AND SAFETY.
[2017-04-27 19:30] VITALS: BP 122/62
--- NOTE | 2017-04-27 20:58 | NUR ---
RECEIVED IN BEDROOM. STANDING AT SINK PUTTING BUTTER ON HER FACE. STATES " IM PUTTING THIS BUTTER ON MY FACE BECAUSE IT MAKES IT REALLY SOFT AND MAKES IT SO I DONT GET UGLY". CALM AND COOPERATIVE WITH CARE AND ASSESSMENTS. NO SIGNS OF PARANOIA. ENCOURAGE TO EXPRESS NEEDS. CONTINUES TO GET READY FOR BED AT THIS TIME. CONTINUE PLAN OF CARE
[2017-04-28 08:17] VITALS: BP 105/59
--- NOTE | 2017-04-28 09:03 | NUR ---
CHRISTIANNE SPOKE WITH CHIP FROM APS REGARDING PT'S CASE. IT IS AN OPEN CASE AND THEY WILL FOLLOW PT IN THE HOME ENVIRONMENT. HOWEVER, PT IS NOT IN THEIR CUSTODY SO THEY WILL NOT WRITE A LETTER STATING THEIR DECISION WAS TO PUT HER BACK IN THE HOME ENVIRONMENT. CHIP STATED THEY WILL FOLLOW HER IN THE HOME AND IF SHE FAILS AT THE MOST LEAST RESTRICTIVE ENVIRONMENT THEN SHE WILL BE PLACED AT THE NEXT LEVEL OF CARE.
--- NOTE | 2017-04-28 09:39 | PN ---
PATIENT:RUTHY WIN MEDICAL RECORD: [id number] LOCATION:[facility] ADMISSION DATE: 04/03/17 PROGRESS NOTE DATE OF SERVICE: 04/25/2017 SUBJECTIVE: No new complaint. OBJECTIVE: This is now the fifth day that we have not received any communication whatsoever from adult protective services regarding discharge plans. Again, the only requirement that we have is simply receiving a letter confirming their determination, but repeated phone calls by case management have gone either unanswered or there is a delay in response. Aside from this, the patient remains stable, she is tolerating medications well, participating in group activities. Mood is for the most part euthymic. Affect is somewhat constricted. Speech is rather terse. Content of thought focuses on somatic concerns. Sensorium shows no change. ASSESSMENT: No change in diagnosis. PLAN: 1. Continue current medications. 2. Continue supportive therapy. TRANSINT:[id number] Voice Confirmation ID: [id number] DOCUMENT ID: [id number] ARCELIA REYNOSO III, MD at 0939 CC: [id number] DICTATION DATE: 04/25/17 111 STEAM CLEANER: 04/25/[address] [facility] [address] [place] [address]
--- NOTE | 2017-04-28 09:54 | NUR ---
SW PROVIDE PT WITH CARING PLACE, SCAT VAN, AND ANIMAL CONTROL NUMBERS/BROCHURES. SW ALSO PRINTED OFF DIRECTIONS TO NEAREST PHARMACY AND WALK IN CLINIC TO PT'S HOUSE SINCE SHE DOES NOT HAVE PCP OR PHARMACY. CHRISTIANNE DISCUSSED RESOURCES WITH PT AND SET HER UP WITH MEALS ON WHEELS.
[2017-04-28] MEDS ORDERED: NAMENDA5 MG PO (10:31)
[2017-04-28] MEDS ORDERED: ABILIFY10 MG PO (10:31)
[2017-04-28] MEDS ORDERED: ZOLOFT100 MG PO (10:32)
[2017-04-28] MEDS ORDERED: FOLIC ACID1 MG PO (10:33)
[2017-04-28] MEDS ORDERED: VITAMIN D5000 UNIT PO (10:33)
--- NOTE | 2017-04-28 14:19 | NUR ---
PATIENT IS AWAKE AND ORIENTED X 3, CALM AND COOPERATIVE WITH CARE AND ASSESS- MENT. MEDICATIONS GIVEN PRESCRIBED. FALL PRECAUTIONS MAINTAINED. WILL CONTINUE TO MONITOR. PATIENT IS SET TO DISCHARGE TODAY. ALL DISCHARGE PAPERWORK REVIEWED WITH PATIENT. ALL BELONGINGS BAGGED AND ACCOUNTED FOR. [facility] CALLED AND VOCHER USED TO SEND PATIENT HOME.
--- NOTE | 2017-04-29 06:06 | PN ---
PATIENT:RUTHY WIN MEDICAL RECORD: [id number] LOCATION:[facility] ADMISSION DATE: 04/03/17 PROGRESS NOTE DATE OF SERVICE: 04/28/2017 SUBJECTIVE: No new complaint. OBJECTIVE: Final communication has been received from adult protective services. We will proceed with discharge today. ASSESSMENT: No change in diagnosis. PLAN: Discharge later today. TRANSINT:[id number] Voice Confirmation ID: [id number] DOCUMENT ID: [id number] ARCELIA REYNOSO III, MD at 0606 CC: [id number] DICTATION DATE: 04/28/17 1309 ADULT EDUCATION MANAGER: 04/28/17 1324 DIS IN 04/28/[id number] [place] [address]
--- NOTE | 2017-04-29 13:05 | PN ---
PATIENT:RUTHY WIN MEDICAL RECORD: [id number] LOCATION:[facility] ADMISSION DATE: 04/03/17 PROGRESS NOTE DATE OF SERVICE: 04/17/2017 SUBJECTIVE: The patient's case was discussed with staff. She has no new complaint. OBJECTIVE: The patient is somewhat suspicious, but denies overt psychotic symptoms. ASSESSMENT: No change in diagnoses. PLAN: Adult protective services is looking at the case and may well take custody of the patient and assist us with placement. It is inappropriate for her to live by herself. She is too impaired. She is an immigrant and has no family, friends, or significant financial resources that would allow her to stay in a less restrictive environment. TRANSINT:[id number] Voice Confirmation ID: [id number] DOCUMENT ID: [id number] PRUDENCIO JEFFREY MD at 1305 CC: [id number] DICTATION DATE: 04/17/17 1412 ASSOCIATE VICE PRESIDENT: 04/17/17 1432 DIS IN 04/28/[id number] [place] [address]
--- NOTE | 2017-05-10 11:29 | DS ---
PATIENT:RUTHY WIN :43 MEDICAL RECORD: [id number] DISCHARGE SUMMARY ADMISSION DATE: 04/03/17 DISCHARGE DATE: 04/28/17 IDENTIFYING DATA: The patient is 71 years old and she was admitted to the hospital on a voluntary basis because of hallucinations. The patient presented to the Emergency Room at [facility]. At that time, she was having psychotic symptoms. They evaluated her medically and could not find any underlying neurologic or metabolic reasons that needed to be addressed and so she was subsequently transferred here for evaluation and treatment. The patient has a couple of delusions. First, they regard a number of cats talking to her and the other is a delusion about some sort of a device that has been implanted into her abdomen. HOSPITAL COURSE: The patient was admitted to the hospital and fully evaluated from both a medical, psychological, and social standpoint. She was tested by Dr. Corinna Dobbs and found to have a dementia in the mild range of impairment. She was given some antipsychotic medications, which helped with the delusions. It was believed that she had a vascular dementia and it was recommended that she not live alone. Unfortunately, the patient has no children, no , and no visible means of support. She does have a sister, who lives [place] in a [place]. MENTAL STATUS EXAMINATION: The patient is awake, alert, and oriented to person, place, and somewhat to time and situation. She was successfully treated with antipsychotic medications and refused to go to any kind of assisted living in a usp. Adult protective services was contacted and did not feel that they have the authority to intervene. Given this, there was nothing else that could be done but discharge her back home with as many supportive services as we could find. DISCHARGE DIAGNOSES: AXIS I: Vascular dementia. AXIS II: None. AXIS III: None. AXIS IV: Moderate stressors. AXIS V: Global assessment of functioning is 40. PLAN: At the time of discharge, the patient was not directly or acutely dangerous to herself, but was certainly in need of assistance and some supervision. She will have followup with her primary care physician along with the local mental health center. TRANSINT:[id number] Voice Confirmation ID: [id number] DOCUMENT ID: [id number] PRUDENCIO JEFFREY MD at 1129 CC: [id number] DICTATION DATE: 05/09/17921 PICKER FEEDER: 05/09/172030 DIS IN 04/28/17 [facility] [address] [facility] [place], [facility]
== END 2017-04-28 14:30 | disposition home or self-care (01) | DRG 884 ==
LOC: D.PSYCH 11:41
PROVIDERS: ADMIT Psychiatry & Neurology Psychiatry
DX: F01.51 Vascular dementia, unspecified severity, with behavioral disturbance (principal); F02.81 Dementia in other diseases classified elsewhere, unspecified severity, with behavioral disturbance; G30.9 Alzheimer's disease, unspecified; Z72.0 Tobacco use; Z74.09 Other reduced mobility; I10 Essential (primary) hypertension; K59.00 Constipation, unspecified; F41.9 Anxiety disorder, unspecified; M19.90 Unspecified osteoarthritis, unspecified site; K29.70 Gastritis, unspecified, without bleeding; F32.9 Major depressive disorder, single episode, unspecified; E55.9 Vitamin D deficiency, unspecified

== ENCOUNTER 2017-07-22 01:19 | Inpatient (IN) | payer MEDICARE ==
[~2017-07-22] VITALS: Ht 160 cm; Wt 53.9 kg
--- NOTE | ~2017-07-22 | PN ---
PATIENT:RUTHY WIN MEDICAL RECORD: [id number] LOCATION:[facility] ADMISSION DATE: 07/22/17 PROGRESS NOTE DATE OF SERVICE: 08/04/2017 SUBJECTIVE: The patient's case was discussed with staff. She has no new complaint. OBJECTIVE: The patient is in good behavioral control with poor insight about her condition. ASSESSMENT: No change in diagnoses. PLAN: The patient will have her Namenda increased to 5 mg twice daily. I anticipate that she could be transitioned out of the hospital as soon as we are waiting for adult protective services to give us approval with her placement. TRANSINT:[id number] Voice Confirmation ID: [id number] DOCUMENT ID: [id number] PRUDENCIO JEFFREY MD at 1430 CC: [id number] DICTATION DATE: 08/04/17 1359 IMMIGRATION SPECIALIST: 08/04/17 1557 ADM IN [facility] [address] [place] [address]
--- NOTE | ~2017-07-22 | PN ---
PATIENT:RUTHY WIN MEDICAL RECORD: [id number] LOCATION:[facility] ADMISSION DATE: 07/22/17 PROGRESS NOTE DATE OF SERVICE: 08/05/2017 SUBJECTIVE: The patient's case was discussed with staff. She has no new complaint. OBJECTIVE: The patient is in good behavioral control with poor insight about her condition. She tolerates her medicines well. ASSESSMENT: No change in diagnoses. PLAN: The patient is ready for discharge. Adult protective services is helping us and they have some administrative things that will relate to the custodial getting payment, that must be done before she can be released. TRANSINT:[id number] Voice Confirmation ID: [id number] DOCUMENT ID: [id number] PRUDENCIO JEFFREY MD at 2008 CC: [id number] DICTATION DATE: 08/05/17 1525 THERAPIST RADIATION: 08/05/17 1622 ADM IN [facility] [address] [place] [address]
--- NOTE | ~2017-07-22 | PN ---
PATIENT:RUTHY WIN MEDICAL RECORD: [id number] LOCATION:[facility] ADMISSION DATE: 07/22/17 PROGRESS NOTE DATE OF SERVICE: 08/27/2017 SUBJECTIVE: The patient's case was discussed with staff. She has no new complaints. OBJECTIVE: The patient is demented, but in good control and has no psychotic symptoms. ASSESSMENT: No change in diagnoses. PLAN: The patient may be transitioned out of the hospital at any time. There are issues related to her placement that have been documented extensively by case management. From a clinical standpoint, she has been ready and may be discharged as soon as the appropriate environment can be arranged. TRANSINT:[id number] Voice Confirmation ID: [id number] DOCUMENT ID: [id number] PRUDENCIO JEFFREY MD at 1318 CC: [id number] DICTATION DATE: 08/27/17 1234 LEGAL FILE CLERK: 08/27/17 1251 ADM [address] [place] [address]
--- NOTE | ~2017-07-22 | PN ---
PATIENT:RUTHY WIN MEDICAL RECORD: [id number] LOCATION:[facility] ADMISSION DATE: 07/22/17 PROGRESS NOTE DATE OF SERVICE: 07/28/2017 SUBJECTIVE: The patient's case was discussed with staff. She has no new complaint. OBJECTIVE: The patient is in good behavioral control with limited insight about her condition. She tolerates her medicines well. ASSESSMENT: The patient still has the delusions about the talking cat and the device in her abdomen, but she does not mention it unless it is brought up, and even then she only mentions it in passing, it is not distressing her. She is taking an antipsychotic medication at this point, I do think her needs are pharmacologic, but social. She needs to be around other people. This will be in her best mental health interest, and in addition to that she needs 97-qvxc-s-day supervision. I am optimistic that adult protective services will take custody of her and assist us in placing her in a senior living. If there is an alternate or less restrictive environment in which she can have her needs met, I am certainly open to it, but I just do not see that there is and to repeat what has been stated numerous times, she has a dementia, it is advanced. She cannot live alone. She has no family, no friends and her only relative is an elderly sister who lives in [place]. TRANSINT:[id number] Voice Confirmation ID: [id number] DOCUMENT ID: [id number] PRUDENCIO JEFFREY MD at 0849 CC: [id number] DICTATION DATE: 07/28/17 1438 ASSISTANT MEDIA PLANNER: 07/28/17 1937 ADM IN [facility] [address] [place] [address]
--- NOTE | ~2017-07-22 | PN ---
PATIENT:RUTHY WIN MEDICAL RECORD: [id number] LOCATION:[facility] ADMISSION DATE: 07/22/17 PROGRESS NOTE DATE OF SERVICE: 08/14/2017 SUBJECTIVE: The patient's case was discussed with staff. She has no new complaint. OBJECTIVE: The patient denies intent to harm herself or others. She tolerates her medicines well. ASSESSMENT: No change in diagnoses. PLAN: The patient will be transitioned out of the hospital as soon as placement arrangements can be made. TRANSINT:[id number] Voice Confirmation ID: [id number] DOCUMENT ID: [id number] PRUDENCIO JEFFREY MD at 1331 CC: [id number] DICTATION DATE: 08/14/17 1352 AIRPLANE DISPATCH CLERK: 08/14/17 1448 ADM IN [id number] [place] [address]
--- NOTE | ~2017-07-22 | PN ---
PATIENT:RUTHY WIN MEDICAL RECORD: [id number] LOCATION:[facility] ADMISSION DATE: 07/22/17 PROGRESS NOTE DATE OF SERVICE: 07/26/2017 SUBJECTIVE: The patient's case was discussed with staff. She has no new complaint. OBJECTIVE: The patient is tolerating her medicines well. She continues to be delusional, but does not bring up her concerns about what is in her abdomen unless asked about it. ASSESSMENT: No change in diagnoses. PLAN: Current medicines have been reviewed and will be maintained. Long-term prognosis is guarded. TRANSINT:[id number] Voice Confirmation ID: [id number] DOCUMENT ID: [id number] PRUDENCIO JEFFREY MD at 1117 CC: [id number] DICTATION DATE: 07/26/17903 MANAGER PRIVACY: 07/26/17 09 ADM IN [id number] [place] [id number]
--- NOTE | ~2017-07-22 | PN ---
PATIENT:RUTHY WIN MEDICAL RECORD: [id number] LOCATION:[facility] ADMISSION DATE: 07/22/17 PROGRESS NOTE DATE OF SERVICE: 08/26/2017 SUBJECTIVE: The patient's case was discussed with staff. She has no new complaint. OBJECTIVE: The patient is in good behavioral control with limited insight about her condition. She tolerates her medicines well. ASSESSMENT: No change in diagnoses. PLAN: The patient is awaiting discharge. Her long-term prognosis is guarded. TRANSINT:[id number] Voice Confirmation ID: [id number] DOCUMENT ID: [id number] PRUDENCIO JEFFREY MD at 1224 CC: [id number] DICTATION DATE: 08/26/17 1453 NATIONAL ACCOUNTS SALES: 08/26/17 1549 ADM IN [place] [id number] [place] [address]
--- NOTE | ~2017-07-22 | PN ---
PATIENT:RUTHY WIN MEDICAL RECORD: [id number] LOCATION:[facility] ADMISSION DATE: 07/22/17 PROGRESS NOTE DATE OF SERVICE: 08/12/2017 SUBJECTIVE: The patient's case was discussed with staff. She has no new complaint. OBJECTIVE: The patient is in good behavioral control with poor insight about her condition. She tolerates her medicines well. Eye contact is fair. ASSESSMENT: No change in diagnoses. PLAN: The patient is ready to be transitioned out of the hospital as soon as Adult Protective Services finds her appropriate placement. Hopefully, that will be soon. TRANSINT:[id number] Voice Confirmation ID: [id number] DOCUMENT ID: [id number] PRUDENCIO JEFFREY MD at 1426 CC: [id number] DICTATION DATE: 08/12/17 1434 CONSTRUCTION LABORER: 08/12/17 1447 ADM IN [place] [id number] [place] [id number]
--- NOTE | ~2017-07-22 | PN ---
PATIENT:RUTHY WIN MEDICAL RECORD: [id number] LOCATION:[facility] ADMISSION DATE: 07/22/17 PROGRESS NOTE DATE OF SERVICE: 07/23/2017 SUBJECTIVE: The patient's case was discussed with staff. She has no new complaint. OBJECTIVE: The patient is in good behavioral control with limited insight about her condition. She tolerates her medicines well. ASSESSMENT: No change in diagnoses. PLAN: Brief supportive and educational interventions were made. The patient is going to be given a low dose of Risperdal to assist with her ongoing delusions and psychotic symptoms. This patient's situation is unfortunate. She has no family, friends, or relatives in the [place]. In fact, the only relative she has is an elderly sister who lives in [place]. She has lost contact with everyone she formally knew in [facility] and has not established deep contacts here. She lives alone. She has a significant dementia as evidenced by her behaviors and the neuropsychological testing on her last admission. She was accepted to a correction through the office of long-term care, but did not want to go. Adult protective services was contacted and did not feel that they could take custody of the patient and so she was sent home with some degree of monitoring that Adult Protective Services was going to provide. The patient does not have a skilled need that requires home health and she is too demented to manage her own affairs. She should not and does not drive. She presents now again to the Emergency Room psychotic, delusional, and confused. She apparently did not get her medications filled when she left here and was very delusional again. She may well have significant improvement in her psychotic symptoms, but her dementia is not going to improve. I think it is wildly inappropriate for her to be living alone and will pursue any reasonable course I can to place her back in her home. She was placed there before, it did not work, I see no reason to try that again. She has no insight about her situation and very much wants to go home. The situation is sad, but the facts are as described above. She cannot care for herself. There is no one to care for her, she does not have the money to hire caregivers, the least restrictive environment is a correction, which she does not want to go to, but she lacks the ability to make reasonable informed consent decisions because of her underlying dementia. TRANSINT:[id number] Voice Confirmation ID: [id number] DOCUMENT ID: [id number] PRUDENCIO JEFFREY MD at 1024 CC: [id number] DICTATION DATE: 07/23/17 1507 NEGATIVE RESTORER: 07/23/17 1529 ADM IN [place] [id number] [place] [address]
--- NOTE | ~2017-07-22 | PN ---
PATIENT:RUTHY WIN MEDICAL RECORD: [id number] LOCATION:[facility] ADMISSION DATE: 07/22/17 PROGRESS NOTE DATE OF SERVICE: 08/18/2017 SUBJECTIVE: The patient's case was discussed with staff. She has no new complaint. OBJECTIVE: The patient is in good behavioral control. She has no thoughts of harming herself or others. ASSESSMENT: No change in diagnoses. PLAN: The patient may be discharged from the hospital as soon as adult protective services finishes their investigation and gives us approval. TRANSINT:[id number] Voice Confirmation ID: [id number] DOCUMENT ID: [id number] PRUDENCIO JEFFREY MD at 1446 CC: [id number] DICTATION DATE: 08/18/17 1407 MIXER DRIVER: 08/18/17 1455 ADM IN [place] [id number] [place] [address]
--- NOTE | ~2017-07-22 | PN ---
PATIENT:RUTHY WIN MEDICAL RECORD: [id number] LOCATION:[facility] ADMISSION DATE: 07/22/17 PROGRESS NOTE DATE OF SERVICE: 08/21/2017 SUBJECTIVE: The patient's case was discussed with staff. She has no new complaint. OBJECTIVE: The patient is in good behavioral control with limited insight about her condition. She has no aggressive behaviors and no thoughts of harming herself. ASSESSMENT: No change in diagnoses. PLAN: Current medicines and therapies have been reviewed and will be maintained. There are some issues with adult protective services now claiming that they cannot take custody of her for reasons that are nebulous at best and I am going to leave this to our social worker school and hospital administration to intervene. TRANSINT:[id number] Voice Confirmation ID: [id number] DOCUMENT ID: [id number] PRUDENCIO JEFFREY MD at 1348 CC: [id number] DICTATION DATE: 08/21/17 1521 ACOUSTICAL TILE DRILL PRESS OPERATOR: 08/21/17 1639 ADM IN [facility] [address] [place] [id number]
--- NOTE | ~2017-07-22 | PN ---
PATIENT:RUTHY WIN MEDICAL RECORD: [id number] LOCATION:[facility] ADMISSION DATE: 07/22/17 PROGRESS NOTE DATE OF SERVICE: 09/01/2017 SUBJECTIVE: The patient's case was discussed with staff. She has no new complaint. OBJECTIVE: The patient is in good behavioral control with limited insight about her condition. She tolerates her medicines well. ASSESSMENT: No change in diagnoses. PLAN: Supportive and educational interventions were made. Long-term prognosis is guarded. I anticipate she can be transitioned out of the hospital soon if adult protective services will assist with placement. TRANSINT:[id number] Voice Confirmation ID: [id number] DOCUMENT ID: [id number] PRUDENCIO JEFFREY MD at 1445 CC: [id number] DICTATION DATE: 09/01/17 1343 WEBSPHERE PORTAL ARCHITECT: 09/01/17 1358 ADM IN [place] [address] [place] [address]
--- NOTE | ~2017-07-22 | PN ---
PATIENT:RUTHY WIN MEDICAL RECORD: [id number] LOCATION:[facility] ADMISSION DATE: 07/22/17 PROGRESS NOTE DATE OF SERVICE: 08/09/2017 SUBJECTIVE: The patient asks when she is going home. OBJECTIVE: The patient has been pleasant and cooperative. She maintains for the most part euthymic, sometimes upbeat mood. Affect is somewhat childlike. Speech is repetitive. Content of thought positive for recent hallucinations. Sensorium shows no change. ASSESSMENT: No change in diagnosis. PLAN: 1. Continue all current medications. 2. Continue supportive therapy. TRANSINT:[id number] Voice Confirmation ID: [id number] DOCUMENT ID: [id number] ARCELIA REYNOSO III, MD at 1124 CC: [id number] DICTATION DATE: 08/09/17 1152 WORKFORCE DEVELOPMENT VICE PRESIDENT: 08/09/17 1205 ADM IN [place] [address] [place] [address]
--- NOTE | ~2017-07-22 | PN ---
PATIENT:RUTHY WIN MEDICAL RECORD: [id number] LOCATION:[facility] ADMISSION DATE: 07/22/17 PROGRESS NOTE DATE OF SERVICE: 08/19/2017 SUBJECTIVE: The patient's case was discussed with staff. She has no new complaint. OBJECTIVE: The patient is in good behavioral control with limited insight about her condition. She tolerates her medicines well. ASSESSMENT: No change in diagnoses. PLAN: Brief supportive and educational interventions were made. Long-term prognosis is guarded. I anticipate the patient can be transitioned out of the hospital as soon as Adult Protective Services gives us permission to discharge her. TRANSINT:[id number] Voice Confirmation ID: [id number] DOCUMENT ID: [id number] PRUDENCIO JEFFREY MD at 1731 CC: [id number] DICTATION DATE: 08/19/17 1509 HIGH SCHOOL COMBINATION TEACHER: 08/19/17 1526 ADM IN [facility] [address] [place] [address]
--- NOTE | ~2017-07-22 | PN ---
PATIENT:RUTHY WIN MEDICAL RECORD: [id number] LOCATION:[facility] ADMISSION DATE: 07/22/17 PROGRESS NOTE DATE OF SERVICE: 08/20/2017 SUBJECTIVE: The patient's case was discussed with staff. She has no new complaint. OBJECTIVE: The patient is in good behavioral control with no psychotic symptoms. ASSESSMENT: No change in diagnoses. PLAN: Current medicines have been reviewed and will be maintained. I anticipate the patient could be transitioned to the prison as soon as adult protective services approves her transfer. TRANSINT:[id number] Voice Confirmation ID: [id number] DOCUMENT ID: [id number] PRUDENCIO JEFFREY MD at 1459 CC: [id number] DICTATION DATE: 08/20/17 1742 BORDEREAU CLERK: 08/20/17 1821 ADM IN [facility] [address] [place] [address]
--- NOTE | ~2017-07-22 | PN ---
PATIENT:RUTHY WIN MEDICAL RECORD: [id number] LOCATION:[facility] ADMISSION DATE: 07/22/17 PROGRESS NOTE DATE OF SERVICE: 08/13/2017 SUBJECTIVE: The patient's case was discussed with staff. She has no new complaint. OBJECTIVE: The patient is demented, but has no evidence of acute or direct dangerousness. ASSESSMENT: No change in diagnoses. PLAN: The patient will be maintained on current medicines. Once adult protective services has arranged long-term placement, she will be discharged. TRANSINT:[id number] Voice Confirmation ID: [id number] DOCUMENT ID: [id number] PRUDENCIO JEFFREY MD at 1337 CC: [id number] DICTATION DATE: 08/13/17 1456 DICER OPERATOR: 08/13/17 1614 ADM IN [place] [address] [place] [address]
--- NOTE | ~2017-07-22 | PN ---
PATIENT:RUTHY WIN MEDICAL RECORD: [id number] LOCATION:[facility] ADMISSION DATE: 07/22/17 PROGRESS NOTE DATE OF SERVICE: 08/08/2017 SUBJECTIVE: The patient asks when she is going home. OBJECTIVE: Staff are waiting on the adult protective services to recommend long term. The patient has been cooperative. On exam, mood is euthymic and pleasant. Affect somewhat child-like. Speech is terse and somewhat tangential. Content of thought is negative for overt psychosis at the moment, although the patient reportedly is having hallucinations. Sensorium unchanged. ASSESSMENT: No change in diagnoses. PLAN: 1. Maintain current medication. 2. Continue supportive therapy. TRANSINT:[id number] Voice Confirmation ID: [id number] DOCUMENT ID: [id number] ARCELIA REYNOSO III, MD at 1733 CC: [id number] DICTATION DATE: 08/08/17 1434 ASSEMBLY RIVETER: 08/08/17 1521 ADM IN [facility] [address] [place] [id number]
--- NOTE | ~2017-07-22 | PN ---
PATIENT:RUTHY WIN MEDICAL RECORD: [id number] LOCATION:[facility] ADMISSION DATE: 07/22/17 PROGRESS NOTE DATE OF SERVICE: 08/15/2017 SUBJECTIVE: The patient's case was discussed with staff. She has no new complaint. OBJECTIVE: The patient is in good behavioral control with poor insight about her condition. She does tolerate her medications well. ASSESSMENT: No change in diagnoses. PLAN: Supportive and educational interventions were made. I anticipate the patient can be transitioned out of the hospital as soon as arrangements can be made for placement. TRANSINT:[id number] Voice Confirmation ID: [id number] DOCUMENT ID: [id number] PRUDENCIO JEFFREY MD at 1355 CC: [id number] DICTATION DATE: 08/15/17 1346 MECHANIC ASSISTANT: 08/15/172 ADM IN [place] [id number] [place] [id number]
--- NOTE | ~2017-07-22 | DS ---
PATIENT:RUTHY WIN :43 MEDICAL RECORD: [id number] DISCHARGE SUMMARY ADMISSION DATE: 07/22/17 DISCHARGE DATE: 09/02/17 IDENTIFYING DATA: The patient is 72 years old and she was admitted to the hospital on a voluntary basis because of psychotic symptoms. The patient believed that there was a cake inside of her stomach and that it was talking to her. She had been admitted a few months prior to this with very similar bizarre delusions that her cats were talking to her. At that time, she had been diagnosed with an advanced dementia and given that she had no relatives or friends or family members in the [place] and that she was a [place] immigrant, she clearly was in need of 97-puzt-y-day supervision. Adult protective services disagreed and wanted her return to her home, which we were powerless to do anything about. Now, the patient presents again also delusional, not caring for herself and in need of 80-ckip-f-day supervision. Nothing has changed about her psychosocial situation except that we discovered she has a sister, who is older than she is and lives in a [place]. Other than that, she has no one, who has any contact with her and in fact the entire hospitalization no one except her sister telephoned. HOSPITAL COURSE: The patient was admitted to the hospital and evaluated from both a medical, psychological, and social standpoint. The patient was treated with both antipsychotic and memory enhancing medications and stabilized very quickly. Unfortunately, for reasons that are beyond my explanation adult protective services refused to assist us or take custody of her and would not put that in writing. The agency gave us no assistance again. Our social work therapist did find a [place] immigrant, who runs a custodial and Ruthy was placed there. 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 AXIS II: None. AXIS III: Hypertension, cardiac arrhythmia. AXIS IV: Moderate stressors. AXIS V: Global assessment of functioning is 40. PLAN: At the time of discharge, the patient no longer had the delusions about talking cakes or talking cats. She was in very good behavioral control, but had clear evidence of an advanced dementia. She is going to be followed on an outpatient basis by her primary care physician. I think she is in a reasonably safe and supervised environment for the time being. However, if harm comes to her because of an inadequate amount of supervision, I think blame can only be placed at the state agency that refused to do their job and would not put it in writing that they would not do their job only in verbal communications, which were well documented by our social work therapist. TRANSINT:[id number] Voice Confirmation ID: [id number] DOCUMENT ID: [id number] DISCHARGE SUMMARY REPORT [id number] RUTHY WIN PETER MD at 1403 CC: [id number] DICTATION DATE: 09/04/17 1310 CHILD SUPPORT OFFICER: 09/04/17 1342 DIS IN 09/02/17 [facility] [address] [place] [id number]
--- NOTE | ~2017-07-22 | PN ---
PATIENT:RUTHY WIN MEDICAL RECORD: [id number] LOCATION:[facility] ADMISSION DATE: 07/22/17 PROGRESS NOTE DATE OF SERVICE: 08/22/2017 SUBJECTIVE: No new complaint. OBJECTIVE: We are waiting determination from adult protective services regarding final placement. On exam, mood is pleasant and euthymic. Affect is bland. Speech is somewhat tangential. Content of thought is negative for overt psychosis. Sensorium unchanged. ASSESSMENT: No change in diagnosis. PLAN: 1. Continue current medications. 2. Continue supportive therapy. TRANSINT:[id number] Voice Confirmation ID: [id number] DOCUMENT ID: [id number] ARCELIA REYNOSO III, MD at 1142 CC: [id number] DICTATION DATE: 08/22/17 1217 TORCH HEATER: 08/22/17 1225 ADM IN [place] [id number] [place] [address]
--- NOTE | ~2017-07-22 | PN ---
PATIENT:RUTHY WIN MEDICAL RECORD: [id number] LOCATION:[facility] ADMISSION DATE: 07/22/17 PROGRESS NOTE DATE OF SERVICE: 08/28/2017 The patient is awaiting discharge once placement is obtained. TRANSINT:[id number] Voice Confirmation ID: [id number] DOCUMENT ID: [id number] PRUDENCIO JEFFREY MD at 1247 CC: [id number] DICTATION DATE: 08/28/17 1339 COPY PREPARER: 08/28/17 1430 ADM IN [place] [id number] [place] [address]
--- NOTE | ~2017-07-22 | PN ---
PATIENT:RUTHY WIN MEDICAL RECORD: [id number] LOCATION:[facility] ADMISSION DATE: 07/22/17 PROGRESS NOTE DATE OF SERVICE: 07/25/2017 SUBJECTIVE: The patient's case was discussed with staff. She has no new complaint. OBJECTIVE: The patient is in good behavioral control with limited insight about her condition. She tolerates her medicines well. She continues to be delusional, but is less intense about her delusion. ASSESSMENT: No change in diagnoses. PLAN: Current medicines have been reviewed and will be maintained. Long-term prognosis is guarded. TRANSINT:[id number] Voice Confirmation ID: [id number] DOCUMENT ID: [id number] PRUDENCIO JEFFREY MD at 0847 CC: [id number] DICTATION DATE: 07/25/17 1323 SEX CRIMES DETECTIVE: 07/25/17 1403 ADM IN [place] [id number] [place] [id number]
--- NOTE | ~2017-07-22 | PN ---
PATIENT:RUTHY WIN MEDICAL RECORD: [id number] LOCATION:[facility] ADMISSION DATE: 07/22/17 PROGRESS NOTE DATE OF SERVICE: 07/30/2017 SUBJECTIVE: The patient's case was discussed with staff. She has no new complaint. OBJECTIVE: The patient is in good behavioral control. She is eating and sleeping well. She does need longterm placement and hopefully that can be arranged soon. There is a rather complicated process that is required to make that happen, but it does appear to be on track. TRANSINT:[id number] Voice Confirmation ID: [id number] DOCUMENT ID: [id number] PRUDENCIO JEFFREY MD at 1206 CC: [id number] DICTATION DATE: 07/30/17 1231 WET ROASTER: 07/30/17 1237 ADM IN [place] [id number] [place] [address]
--- NOTE | ~2017-07-22 | PN ---
PATIENT:RUTHY WIN MEDICAL RECORD: [id number] LOCATION:[facility] ADMISSION DATE: 07/22/17 PROGRESS NOTE DATE OF SERVICE: 07/31/2017 SUBJECTIVE: The patient's case was discussed with staff. She has no new complaint. OBJECTIVE: The patient is in good behavioral control with limited insight about her condition. She tolerates her medicines well. ASSESSMENT: No change in diagnoses. PLAN: Brief supportive and educational interventions were made. Mcfp prognosis is guarded. TRANSINT:[id number] Voice Confirmation ID: [id number] DOCUMENT ID: [id number] PRUDENCIO JEFFREY MD at 0912 CC: [id number] DICTATION DATE: 07/31/17 1224 CRAWLER TRACTOR OPERATOR: 07/31/17 1232 ADM IN [place] [id number] [place] [id number]
--- NOTE | ~2017-07-22 | PN ---
PATIENT:RUTHY WIN MEDICAL RECORD: [id number] LOCATION:[facility] ADMISSION DATE: 07/22/17 PROGRESS NOTE DATE OF SERVICE: 08/25/2017 SUBJECTIVE: The patient's case was discussed with staff. She has no new complaint. OBJECTIVE: The patient is in good behavioral control. She has no thoughts of harming herself or others. She tolerates her medicines well. ASSESSMENT: No change in diagnoses. PLAN: Supportive and educational interventions were made. Detention prognosis is guarded. TRANSINT:[id number] Voice Confirmation ID: [id number] DOCUMENT ID: [id number] PRUDENCIO JEFFREY MD at 1417 CC: [id number] DICTATION DATE: 08/25/17 1405 MANAGER DATABASE ADMINISTRATION: 08/25/17 1416 ADM IN [place] [id number] [place] [address]
--- NOTE | ~2017-07-22 | PN ---
PATIENT:RUTHY WIN MEDICAL RECORD: [id number] LOCATION:[facility] ADMISSION DATE: 07/22/17 PROGRESS NOTE DATE OF SERVICE: 08/11/2017 SUBJECTIVE: The patient's case was discussed with staff. She has no new complaint. OBJECTIVE: The patient is severely impaired cognitively. She denies intent to harm herself or others. She has not been aggressive or delusional. ASSESSMENT: No change in diagnoses. PLAN: Current medicines have been reviewed and will be maintained. Long-term prognosis is guarded. I anticipate she can be transitioned out of the hospital as soon as arrangements are made. TRANSINT:[id number] Voice Confirmation ID: [id number] DOCUMENT ID: [id number] PRUDENCIO JEFFREY MD at 1418 CC: [id number] DICTATION DATE: 08/11/17 1842 SKIN FORMER: 08/12/17 0127 ADM IN [facility] [address] [place] [address]
--- NOTE | ~2017-07-22 | PN ---
PATIENT:RUTHY WIN MEDICAL RECORD: [id number] LOCATION:[facility] ADMISSION DATE: 07/22/17 PROGRESS NOTE DATE OF SERVICE: 07/24/2017 SUBJECTIVE: The patient's case was discussed with staff. She has no new complaint. OBJECTIVE: The patient denies intent to harm herself or others. She is tolerating her medicines well, but still has the delusion that there is something, some sort of a box in her stomach that is talking to her. ASSESSMENT: No change in diagnoses. PLAN: This patient was here in March. At that time, she was tested by Dr. Corinna Dobbs and scored 14/30 on the assessment. She was found to be in the severe range of impairment. She does not need to live alone and furthermore, she does require 36-oqph-t-day supervision. [facility] was recommended. The patient did not want to go. She has no family or financial resources or even close friends. Adult protective services would not take custody of her when she was here previously and she was sent home with as many resources being referred to her as possible. She did not get her medication. She does walk to a local grocery store and caries an old suitcase that she kept food in to feed her cats. I strongly suspect that she goes days, perhaps even weeks without seeing or speaking to another human being. I do not believe she is capable of living independently that is based on 2 hospitalizations and neuropsych testing. This patient does require 84-kuxc-j-day supervision and given the circumstances the least restrictive environment is a long-term. I am going to refer her again to adult protective services and ask that they take custody of her and assist us in placing her in an environment where she can be cared for. TRANSINT:[id number] Voice Confirmation ID: [id number] DOCUMENT ID: [id number] PRUDENCIO JEFFREY MD at 1024 CC: [id number] DICTATION DATE: 07/24/17 1040 CONCRETE MASON: 07/24/17 1054 ADM IN [place] [address] [place] [address]
--- NOTE | ~2017-07-22 | PN ---
PATIENT:RUTHY WIN MEDICAL RECORD: [id number] LOCATION:[facility] ADMISSION DATE: 07/22/17 PROGRESS NOTE DATE OF SERVICE: 08/01/2017 SUBJECTIVE: The patient's case was discussed with staff. She has no new complaint. OBJECTIVE: The patient is in good behavioral control with limited insight about her condition. She tolerates her medicines well. ASSESSMENT: No change in diagnoses. PLAN: Supportive and educational interventions were made. Snf prognosis is guarded. TRANSINT:[id number] Voice Confirmation ID: [id number] DOCUMENT ID: [id number] PRUDENCIO JEFFREY MD at 1139 CC: [id number] DICTATION DATE: 08/01/17 1332 DISTRIBUTION ASSOCIATE: 08/01/17 1942 ADM IN [place] [address] [place] [address]
--- NOTE | ~2017-07-22 | PN ---
PATIENT:RUTHY WIN MEDICAL RECORD: [id number] LOCATION:[facility] ADMISSION DATE: 07/22/17 PROGRESS NOTE DATE OF SERVICE: 08/02/2017 SUBJECTIVE: The patient's case was discussed with staff. She has no new complaint. OBJECTIVE: The patient is in good behavioral control with poor insight about her condition. ASSESSMENT: No change in diagnoses. PLAN: Brief supportive and educational interventions were made. The patient will be transitioned out of the hospital as soon as approval comes for halfway placement. TRANSINT:[id number] Voice Confirmation ID: [id number] DOCUMENT ID: [id number] PRUDENCIO JEFFREY MD at 1430 CC: [id number] DICTATION DATE: 08/02/17 1150 SEAMER OPERATOR: 08/02/17 1226 ADM IN [place] [address] [place] [address]
--- NOTE | ~2017-07-22 | PN ---
PATIENT:RUTHY WIN MEDICAL RECORD: [id number] LOCATION:[facility] ADMISSION DATE: 07/22/17 PROGRESS NOTE DATE OF SERVICE: 08/07/2017 SUBJECTIVE: The patient's case was discussed with staff. She has no new complaint. OBJECTIVE: The patient denies intent to harm herself or others. She does tolerate her medicines well. ASSESSMENT: No change in diagnoses. PLAN: Brief supportive and educational interventions were made. Alf prognosis is guarded. TRANSINT:[id number] Voice Confirmation ID: [id number] DOCUMENT ID: [id number] PRUDENCIO JEFFREY MD at 1344 CC: [id number] DICTATION DATE: 08/07/17 1237 CERTIFIED MASTER SAFECRACKER: 08/07/17 1247 ADM IN [place] [id number] [place] [id number]
--- NOTE | ~2017-07-22 | PN ---
PATIENT:RUTHY WIN MEDICAL RECORD: [id number] LOCATION:[facility] ADMISSION DATE: 07/22/17 PROGRESS NOTE DATE OF SERVICE: 08/29/2017 SUBJECTIVE: The patient is awaiting for transfer to a intermediate as documented elsewhere. There are issues that are not related to clinical treatment, but are certainly impacting her ability to be placed. This is a complicated situation, but it has been explained many times in the record. TRANSINT:[id number] Voice Confirmation ID: [id number] DOCUMENT ID: [id number] PRUDENCIO JEFFREY MD at 1921 CC: [id number] DICTATION DATE: 08/29/17 1410 TIMBER CUTTER: 08/29/17 1426 ADM IN [place] [id number] [place] [address]
--- NOTE | ~2017-07-22 | PN ---
PATIENT:RUTHY WIN MEDICAL RECORD: [id number] LOCATION:[facility] ADMISSION DATE: 07/22/17 PROGRESS NOTE DATE OF SERVICE: 08/16/2017 SUBJECTIVE: The patient's case was discussed with staff. She has no new complaint. OBJECTIVE: The patient is in good behavioral control. She has no thoughts of self-harm. She is eating and sleeping well. ASSESSMENT: No change in diagnoses. PLAN: Supportive and educational interventions were made. Fdc prognosis is guarded. TRANSINT:[id number] Voice Confirmation ID: [id number] DOCUMENT ID: [id number] PRUDENCIO JEFFREY MD at 1355 CC: [id number] DICTATION DATE: 08/16/17 0837 INSURANCE OPERATIONS REP: 08/16/17 1203 ADM IN [place] [id number] [place] [address]
--- NOTE | ~2017-07-22 | PSY ---
PATIENT NAME:RUTHY WIN MEDICAL RECORD: [id number] : 43 LOCATION:[facility] ADMISSION DATE: 07/22/17 ACCOUNT: [id number] PSYCHIATRIC EVALUATION DATE OF EVALUATION: 07/22/17 IDENTIFYING DATA: The patient is 72 years old and she is admitted to the hospital secondary to psychosis. CHIEF COMPLAINT: "A cake is in my belly and it is talking to me." HISTORY OF PRESENT ILLNESS: The patient was hospitalized here a few months ago. For reasons that completely escape me, the office of long-term care declined to admit her to a [place] [facility]. At that time, she had been tested by a neuropsychologist and had clear evidence of psychosis. She did not have a skillable need, but certainly required supervision as well as administration of medicines. She is a [place] immigrant and has no family or relatives in the [place]. The only relative she has is a sister in [place] who is older than she is. The patient is living alone. She says she is walking to the grocery store. I doubt she is getting medications and taking them as she should and I also doubt that she is caring for herself properly. A welfare check was requested by adult protective services. I do not know if they have been seeing her. The patient is very delusional. She thinks her cats are talking to her in both Turkish and Greek. Sometimes, they are saying things that are quite distressing like they are going to kill her. She is very upfront about this, explaining it in a very clear manner. PAST MEDICAL HISTORY: Significant for hypertension and cardiac arrhythmia. PAST PSYCHIATRIC HISTORY: Significant for dementia with associated psychotic symptoms and a previous hospitalization here. ALLERGIES: No known drug allergies. CURRENT MEDICATIONS: Include Zoloft, Namenda, Abilify, and aspirin. FAMILY HISTORY: Unknown. SOCIAL HISTORY: The patient has a history of social drinking and a remote history of cigarette smoking. She is . She has no children. Apparently, she has a large number of cats in the house and a report will be made to animal services in case they need to be removed. MENTAL STATUS EXAMINATION: The patient is awake; alert; and oriented to person and place, but not time or situation. Her mood is anxious. Her affect is constricted. Thought processes are circumstantial. Memory, concentration, and abstraction abilities are at least moderately impaired. She denies any active intent to harm herself or others. She does report hallucinations and delusions as described above. ASSETS: Inability to make her needs known. LIABILITIES: Poor insight. 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 AXIS II: None. AXIS III: Hypertension, cardiac arrhythmia. AXIS IV: Moderate stressors. AXIS V: Global assessment of functioning is 35. PLAN: At this time, the patient is admitted to the hospital for comprehensive medical, psychological, and social evaluation. She will be treated with both mood stabilizing and memory enhancing medications. Her long-term prognosis is guarded. TRANSINT:[id number] Voice Confirmation ID: [id number] DOCUMENT ID: [id number] PRUDENCIO JEFFREY MD at 1425 CC: [id number] DICTATION DATE: 07/22/17 1405 AUDIO/VIDEO TECHNICIAN: 07/22/17 1438 ADM IN [place] [id number] [place] [id number]
--- NOTE | ~2017-07-22 | PN ---
PATIENT:RUTHY WIN MEDICAL RECORD: [id number] LOCATION:[facility] ADMISSION DATE: 07/22/17 PROGRESS NOTE DATE OF SERVICE: 07/29/2017 SUBJECTIVE: The patient's case was discussed with staff. She has no new complaint. OBJECTIVE: The patient is in good behavioral control with limited insight about her condition. She tolerates her medicines well. ASSESSMENT: No change in diagnoses. PLAN: Brief supportive and educational interventions are made. Long-term prognosis is guarded. TRANSINT:[id number] Voice Confirmation ID: [id number] DOCUMENT ID: [id number] PRUDENCIO JEFFREY MD at 1150 CC: [id number] DICTATION DATE: 07/29/17 1510 APPLICATIONS ADMINISTRATOR: 07/29/17 1835 ADM IN [place] [id number] [place] [address]
[~2017-07-22 01:19] MED LIST: ABILIFY10 MG PO; BAYER CHEWABLE81 MG PO; FOLIC ACID1 MG PO; NAMENDA5 MG PO; VITAMIN D5000 UNIT PO; ZOLOFT100 MG PO
[2017-07-22 02:45] LABS: BASOPHILS 0.2 % (0-2); EOSINOPHILS 2.8 % (0-7); HEMATOCRIT 38.7 % (36.0-48.0); HEMOGLOBIN 12.9 g/dL (12-16); IMMATURE GRANULOCYTES 0.2 % (0-5); LYMPHOCYTES 30.8 % (15-50); MCH 32.1 pg (26.0-34.0); MCHC 33.3 g/dL (31.0-37.0); MCV 96.3 fL (80.0-100.0); MONOCYTES 8.2 % (2-11); NEUTROPHILS 57.8 % (40-80); PLATELET COUNT 229 10x3/uL (130-400); RBC 4.02 10x6/uL (4.00-5.40); WBC 6.4 10x3/uL (4.8-10.8)
[2017-07-22 02:51] LABS: APTT 26.7 SECONDS (22.8-39.4); INR 1.02 (0.85-1.17)
[2017-07-22 02:52] LABS: D-DIMER-QUANTITATIVE < 0.27 ug/mLFEU (0.20-0.54)
[2017-07-22 02:56] LABS: ALBUMIN 3.3 g/dL (3.4-5.0); ALKALINE PHOSPHATASE 103 U/L (46-116); ALT (SGPT) 19 U/L (10-68); CALC OSMOLALITY 278 mosm/kg (275-300); CALCIUM 8.5 mg/dL (8.5-10.1); CHLORIDE - SERUM 103 mmol/L (98-107); GLUCOSE 109 mg/dL (74-106); POTASSIUM - SERUM 3.7 mmol/L (3.5-5.1); PROTEIN - SERUM 6.7 g/dL (6.4-8.2); SODIUM 140 mmol/L (136-145); UREA NITROGEN 11 mg/dL (7-18); eGFR NON AFRICAN AMERICAN 58 mL/min (90-120)
[2017-07-22 03:04] LABS: AMYLASE - SERUM 61 U/L (25-115); CKMB 0.6 U/L (0.0-3.6); CREATINE KINASE 66 UL (21-215); LIPASE 137 U/L (73-393); PRO BNP 81 pg/mL (0-125); TROPONIN-I < 0.017 ng/mL (0.000-0.060)
[2017-07-22 04:06] LABS: APPEARANCE CLEAR (CLEAR); BACTERIA MANY /hpf (NONE SEEN); BILIRUBIN NEGATIVE (NEGATIVE); COLOR STRAW (YELLOW); EPITHELIAL CELLS 0-5 /hpf (0-5); GLUCOSE NEGATIVE (NEGATIVE); KETONE NEGATIVE (NEGATIVE); NITRITE NEGATIVE (NEGATIVE); PROTEIN NEGATIVE (NEGATIVE); RED CELLS - URINE NONE SEEN /hpf (0-5); UROBILINOGEN NORMAL (NORMAL); WHITE CELLS - URINE 0-5 /hpf (0-5)
[2017-07-22 08:38] LABS: BASOPHILS 0.2 % (0-2); EOSINOPHILS 2.9 % (0-7); HEMATOCRIT 42.8 % (36.0-48.0); HEMOGLOBIN 14.2 g/dL (12-16); IMMATURE GRANULOCYTES 0.2 % (0-5); LYMPHOCYTES 28.1 % (15-50); MCH 32.2 pg (26.0-34.0); MCHC 33.2 g/dL (31.0-37.0); MCV 97.1 fL (80.0-100.0); MEAN PLATELET VOLUME 9.7 fL (7.4-10.4); MONOCYTES 7.8 % (2-11); NEUTROPHILS 60.8 % (40-80); PLATELET COUNT 256 10x3/uL (130-400); RBC 4.41 10x6/uL (4.00-5.40); WBC 6.1 10x3/uL (4.8-10.8)
[2017-07-22 09:06] LABS: ALBUMIN 3.5 g/dL (3.4-5.0); ANION GAP 11.6 mmol/L (8-16); BILIRUBIN - TOTAL 0.65 mg/dL (0.2-1.3); CALCIUM 9.1 mg/dL (8.5-10.1); CHOL - HDL RATIO 2.3 ratio (2.3-4.1); CREATININE - SERUM 0.9 mg/dL (0.6-1.3); LDL-HDL RATIO 1.2 ratio (1.5-3.5); POTASSIUM - SERUM 4.6 mmol/L (3.5-5.1); PROTEIN - SERUM 7.3 g/dL (6.4-8.2); THYROID STIMULATING HORMONE 2.8 uIU/mL (0.36-3.74)
[2017-07-22 10:00] VITALS: BP 131/67; BMI 23.2
[2017-07-22 10:17] VITALS: BMI 23.2
[2017-07-22 10:19] VITALS: BP 131/67
[2017-07-22 13:21] VITALS: Ht 160 cm; Wt 53.9 kg
[2017-07-22 19:58] VITALS: BP 129/65
[2017-07-23 07:28] LABS: RAPID PLASMA REAGIN Non Reactive (Non Reactive)
[2017-07-23 08:22] LABS: FOLATE (FOLIC ACID) - SERUM 7.3 ng/mL (>3.0)
[2017-07-23 10:09] VITALS: BP 127/60
[2017-07-23 19:59] VITALS: BP 173/81
[2017-07-24 10:22] VITALS: BP 116/70
[2017-07-24 19:31] VITALS: BP 129/69
[2017-07-25 09:22] VITALS: BP 106/59
[2017-07-25 19:47] VITALS: BP 120/64
[2017-07-26 09:12] VITALS: BP 108/62
[2017-07-26 13:48] LABS: APPEARANCE CLEAR (CLEAR); BILIRUBIN NEGATIVE (NEGATIVE); COLOR YELLOW (YELLOW); GLUCOSE NEGATIVE (NEGATIVE); KETONE NEGATIVE (NEGATIVE); NITRITE NEGATIVE (NEGATIVE); PROTEIN NEGATIVE (NEGATIVE); SPECIFIC GRAVITY 1.015 (1.005-1.020); UROBILINOGEN NORMAL (NORMAL)
[2017-07-26 13:49] LABS: BACTERIA FEW /hpf (NONE SEEN); EPITHELIAL CELLS 0-5 /hpf (0-5); RED CELLS - URINE NONE SEEN /hpf (0-5); WHITE CELLS - URINE 0-5 /hpf (0-5)
[2017-07-26 20:13] VITALS: BP 140/70
[2017-07-27 07:49] VITALS: BP 112/50
[2017-07-27 20:01] VITALS: BP 124/59
[2017-07-28 07:00] VITALS: BP 94/55
[2017-07-28 19:44] VITALS: BP 126/61
[2017-07-29 08:57] VITALS: BP 135/72
[2017-07-29 20:10] VITALS: BP 110/53
[2017-07-30 09:52] VITALS: BP 118/70
[2017-07-30 19:45] VITALS: BP 128/59
[2017-07-31 09:51] VITALS: BP 110/66
[2017-07-31 23:34] VITALS: BP 123/62
[2017-08-01 09:56] VITALS: BP 112/64
[2017-08-01 20:08] VITALS: BP 141/70
[2017-08-02 07:42] VITALS: BP 138/68
[2017-08-02 19:57] VITALS: BP 116/64
[2017-08-03 07:34] VITALS: BP 106/51
[2017-08-03 23:56] VITALS: BP 109/59
[2017-08-04 08:00] VITALS: BP 99/45
[2017-08-04 19:16] VITALS: BP 117/51
[2017-08-05 07:00] VITALS: BP 128/54
[2017-08-05 19:52] VITALS: BP 120/57
[2017-08-06 10:24] VITALS: BP 135/57
[2017-08-06 19:54] VITALS: BP 142/66
[2017-08-07 07:41] VITALS: BP 116/49
[2017-08-07 19:56] VITALS: BP 123/56
[2017-08-08 09:28] VITALS: BP 133/43
[2017-08-08 20:10] VITALS: BP 100/53
[2017-08-09 07:00] VITALS: BP 118/66
[2017-08-09 19:57] VITALS: BP 120/60
[2017-08-10 07:52] VITALS: BP 118/58
[2017-08-10 19:53] VITALS: BP 125/54
[2017-08-11 07:00] VITALS: BP 122/61
[2017-08-12 07:00] VITALS: BP 132/66
[2017-08-12 20:08] VITALS: BP 123/64
[2017-08-13 10:47] VITALS: BP 116/51
[2017-08-13 20:06] VITALS: BP 109/57
[2017-08-14 09:31] VITALS: BP 141/54
[2017-08-14 19:44] VITALS: BP 113/59
[2017-08-15 09:32] VITALS: BP 112/45
[2017-08-15 20:22] VITALS: BP 116/66
[2017-08-16 09:57] VITALS: BP 134/77
[2017-08-16 20:01] VITALS: BP 152/66
[2017-08-17 07:00] VITALS: BP 118/65
[2017-08-17 19:30] VITALS: BP 124/71
[2017-08-18 07:00] VITALS: BP 110/55
[2017-08-18 19:49] VITALS: BP 116/51
[2017-08-19 11:05] VITALS: BP 140/59
[2017-08-19 19:42] VITALS: BP 111/42
[2017-08-20 09:52] VITALS: BP 125/73
[2017-08-20 20:30] VITALS: BP 106/52
[2017-08-21 10:33] VITALS: BP 106/59
[2017-08-21 21:22] VITALS: BP 111/52
[2017-08-22 09:20] VITALS: BP 115/68
[2017-08-22 20:52] VITALS: BP 90/56
[2017-08-23 10:50] VITALS: BP 118/68
[2017-08-23 20:33] VITALS: BP 117/57
[2017-08-24 07:00] VITALS: BP 128/61
[2017-08-24 19:30] VITALS: BP 134/69
[2017-08-25 07:00] VITALS: BP 142/63
[2017-08-25 19:43] VITALS: BP 119/56
[2017-08-26 07:00] VITALS: BP 120/59
[2017-08-26 21:09] VITALS: BP 129/51
[2017-08-27 12:02] VITALS: BP 114/70
[2017-08-28 02:12] VITALS: BP 117/61
[2017-08-28 10:08] VITALS: BP 149/68
[2017-08-28 19:16] VITALS: BP 121/65
[2017-08-29 19:55] VITALS: BP 126/65
[2017-08-30 07:53] VITALS: BP 103/50
[2017-08-30 19:15] VITALS: BP 141/66
[2017-08-31 07:00] VITALS: BP 112/56
[2017-08-31 18:56] VITALS: BP 148/73
[2017-09-01 07:00] VITALS: BP 115/68
[2017-09-01 20:19] VITALS: BP 127/70
[2017-09-02 07:40] VITALS: BP 136/63
[2017-09-02] MEDS ORDERED: ZOLOFT100 MG PO (15:06)
[2017-09-02] MEDS ORDERED: VITAMIN B-121000 MCG PO (15:06)
[2017-09-02] MEDS ORDERED: NAMENDA5 MG PO (15:07)
[2017-09-02] MEDS ORDERED: RISPERDAL0.5 MG PO (15:07)
== END 2017-09-02 15:57 | disposition home or self-care (01) | DRG 57 ==
LOC: D.ER 01:19 → D.PSYCH 06:32
PROVIDERS: Family Medicine; Psychiatry & Neurology Psychiatry
DX: G30.1 Alzheimer's disease with late onset (principal); F02.81 Dementia in other diseases classified elsewhere, unspecified severity, with behavioral disturbance; R44.3 Hallucinations, unspecified; N39.0 Urinary tract infection, site not specified; I10 Essential (primary) hypertension; E78.5 Hyperlipidemia, unspecified; B96.20 Unspecified Escherichia coli [E. coli] as the cause of diseases classified elsewhere; F41.8 Other specified anxiety disorders; K29.50 Unspecified chronic gastritis without bleeding; M19.90 Unspecified osteoarthritis, unspecified site; K59.00 Constipation, unspecified; I49.9 Cardiac arrhythmia, unspecified; E53.8 Deficiency of other specified B group vitamins; E55.9 Vitamin D deficiency, unspecified; Z72.0 Tobacco use